=== PATIENT | female | born 1960 | race Caucasian/White ===

== ENCOUNTER 2025-04-09 08:25 | Emergency (ER) | payer MEDICARE, SELFPAY ==
--- NOTE | ~2025-04-09 | XR_ITS ---
EXAMINATION: XR chest 2V DATE: 04/09/2025 09:34 INDICATION: 3 days of cough and rhonchi TECHNIQUE: PA and lateral views of the chest were obtained. COMPARISON: None FINDINGS: Linear discoid atelectasis at the anterior bilateral lower lung zones. Subtle hazy opacity projecting over the right lower lung zone on the frontal projection may be related to some of the discoid atele ctasis seen en face or pneumonia. No pulmonary edema, pleural effusion or pneumothorax. The cardiomed iastinal silhouette is normal. Visualized bones and soft tissues are unremarkable. IMPRESSION: 1. Opacities in bilateral lower lung zones due at least primarily to discoid atelectasis although cou ld not exclude pneumonia in the right lower lung zone. Reviewed, dictated and finalized at location A. IMPRESSION: 1. Opacities in bilateral lower lung zones due at least primarily to discoid at electasis although could not exclude pneumonia in the right lower lung zone.
--- OUTSIDE RECORDS SUMMARY | 2025-04-09 08:33 | XMS_ITS | Encounter Summary ---
Author Organization [facility] Address [address] [place] [address] Care Team Providers Care Dopeman Name Role Phone Los Mccloud MD Primary Care Provider Encounter Details Date Type Department Care Team (Latest Contact Info) Description 06/03/2000 Outpatient Historical [facility] ROSALIO Baez, Antony Salinas MD NO ADDRESS ON FILE Other screening mammogram (Primary Dx) Social History Tobacco Use Types Packs/Day Years Used Date Smoking Tobacco: Never Assessed Comments Unknown Sex and Gender Information Value Date Recorded Sex Assigned at Not on file Legal Sex Female 3:44 AM SCORER SINGLE Gender Identity Not on file Sexual Orientation Not on file documented as of this encounter Plan of Treatment Upcoming Encounters Date Type Department Care Team (Late st Contact Info) Description 04/15/2025 8:30 AM CDT Office Visit [facility] Primary Care - [place] [address] [place] [address] Los Mccloud MD [facility] [address] [place] [address] documented as of this encounter Visit Diagnoses Diagnosis Other screening mammogram- Primary documented in this encounter Additional Health Concerns Infection Onset Date Last Indicated Resolved Time R/O COVID-19 12/13/2020 12/13/2020 12/15/2020 12:4 5 AM SCORER SINGLE COVID-19 12/13/2020 12/13/2020 01/12/2021 1:16 AM SCORER SINGLE documented as of this encounter Care Teams Dopeman Relationship Specialty Start Date End Date Los Mccloud MD [facility] [address] [place] [address] PCP - General Internal Medicine 06/23/23 documented as of this encounter
--- OUTSIDE RECORDS SUMMARY | 2025-04-09 08:33 | XMS_ITS ---
Author Organization [employer] [facility] Address [address] [facility] [address] [place] [address] Care Team Providers Care Tree Specialist Name Role Phone Los Mccloud Primary Care Provider Unava ilNorberto Borrego Unavailable [phone] REASON FOR VISIT RUQP, Acid reflx 5ft2 173 Encounters Encounter Location Date Provider Diagnosis [facility] [address] [place] [address] 09/22/2024 Norberto Gomez Plan Of Treatment No Information Progress Notes * ELIZABETMckenzie ADOB:1960 (64 yo F)Acc No.[id number]:09/22/2024 Patient: Mckenzie EL Provider: Bhavin Gomez M.D. :1960 A ge:63 Y S ex:Female Date:09/22/2024 Address:[address] [place] [address] [address] [facility] Pcp:Los Mccloud Subjective: * Chief Complaints: * 1 . RUQP, Acid reflx 5ft2 173. * Medical History: Objective: * Vitals: Assessment: Plan: * Treatment: * Images: * Electronic signature of Erlinda Gomez MD on 04/09/2025 at 08:33 AM CDT Sign off status: Pending * Provider: Bhavin Gomez M.D. Date: Generated for Printi ng/Farica/eTransmitting on: 0 04/09/2025 08:33 AM CDT
--- OUTSIDE RECORDS SUMMARY | 2025-04-09 08:33 | XMS_ITS | Encounter Summary ---
Author Organization [facility] Address [address] [place] [address] Care Team Providers Care Financial Aids Officer Name Role Phone Los Mccloud MD Primary Care Provider Encounter Details Date Type Department Care Team (Late Contact Info) Description 01/27/2009 Outpatient Historical [facility], [address] Aileen Tafoya MD [address] [place] [address] [place] [address] Social History Tobacco Use Types Packs/Day Years Used Date Smoking Tobacco: Never Alcohol Use Standard Drinks/Week Comments No 0 (1 standard drink = 0.6 oz pur e alcohol) Comments No Sex and Gender Information Value Date Recorded Sex Assigned at Not on file Legal Sex Female 3:44 AM TOMBSTONE ERECTOR HELPER Gender Identity Not on file Sexual Orientation Not on file documented as of this encounter Plan of Treatment Upcoming Encounters Date Type Department Care Team (Late Contact Info) Description 04/15/2025 8:30 AM CDT Office Visit [facility] Primary Care - [address] [place] [address] Los Mccloud MD [address] [place] [address]. [address] [place] [address] documented as of this encounter Procedures Procedure Name Priority Date/Time Associated Diagnosis Comments PATHOLOGY Routine 01/27/2009 5:00 PM TOMBSTONE ERECTOR HELPER documented in this encounter Results * PATHOLOGY (01/27/2009 5:00 PM TOMBSTONE ERECTOR HELPER) FINAL REPORT [facility] [address] [place], [place] [address] Patient: MCKENZIE MCNEAL : 1960 Procedure Date: 01/27/2009 Accession Date: 01/28/2009 Case No: [id number] Ordering Dr: AILEEN TAFOYA Case types AW, BW, FW, NW and SH are performed by [facility], [place], [place] SURGICAL PATHOLOGY & NON-GYNECOLOGIC CYTOPATHOLOGY REPORT DIAGNOSIS LARGE INTESTINE, RIGHT, ENDOSCOPIC BIOPSY: - TUBULAR ADENOMA. LARGE INTESTINE, SIGMOID AT 20 CM, ENDOSCOPIC BIOPSY: - TUBULAR ADENOMA, FRAGMENTS OF. Specimen Description: (1) Right colon; (2) sigmoid-20. Operative Procedure: Colonoscopy and EGD. Patient Information/Histo ry/Diagnosis: Family history of colon cancer. Personal history of polyps. (1) and (2) Colon polyp(s). Adenomatous vs. hyperplastic vs. other. Gross: Two containers are received labeled Mckenzie Mcneal. The first specimen is received in a container labeled right colon. It consists of a single piece of serrano tissue measuring less than 0.1 cm in greatest dimension. The specimen is submitted entirely labeled A1. The second specimen is received in a container labeled sigmoid-20. It consists of three pieces of serrano tissue ranging from less than 0.1 to 0.2 cm in greatest dimension. The specimen is submitted entirely labeled B1. ELHAM/CELINE 01.28.2009 09:51 am Microscopic: Received are slides labeled [id number], Mckenzie Mcneal. Sections of right identify crowded glands surfaced by adenomatous epithelium. Sections of sigmoid at 20 cm also identify crowded glands surfaced by adenomatous epithelium. Adenomatous change is present in more than one biopsy piece. PJC/TMZ 01.29.2009 09:36 am Staging Form: No. ELECTRONIC SIGNATURE FOR JANAE MATOS M.D.- 01/29/09 10:31 am INTERFACE SYSTEM 01/27/2009 5:00 PM TOMBSTONE ERECTOR HELPER Aileen Tafoya MD PATHOLOGY/CYTOLOGY ORDERABLES Final Result INTERFACE SYSTEM Refer to clinic/hospital department documented in this encounter Visit Diagnoses Not on filedocumented in this encounter Additional Health Concerns Infection Onset Date Last Indicated Resolved Time R/O COVID-12/13/2020 12/13/2020 12/15/2020 12:4 5 AM TOMBSTONE ERECTOR HELPER COVID-12/13/2020 12/13/2020 01/12/2021 1:16 AM TOMBSTONE ERECTOR HELPER documented as of this encounter Care Teams Financial Aids Officer Relationship Specialty Start Date End Date Los Mccloud MD [address] [facility] [place] [address] PCP - General Internal Medicine 06/23/23 documented as of this encounter
--- OUTSIDE RECORDS SUMMARY | 2025-04-09 08:34 | XMS_ITS | Encounter Summary ---
Author Organization [facility] Address [address] [place] [address] Care Team Providers Care System Engineer Name Role Phone Los Mccloud MD Primary Care Provider Encounter Details Date Type Department Care Team (Late st Contact Info) Description 07/06/2002 Outpatient Historical [facility] [address] [place] [address] [address] [place] [address] Pillo Lugo MD [address] [facility] [address] [id number] Social History Tobacco Use Types Packs/Day Years Used Date Smoking Tobacco: Never Assessed Comments Unknown Sex and Gender Information Value Date Recorded Sex Assigned at Not on file Legal Sex Female 3:44 AM FIELD ENUMERATOR Gender Identity Not on file Sexual Orientation Not on file documented as of this encounter Plan of Treatment Upcoming Encounters Date Type Department Care Team (Late st Contact Info) Description 04/15/2025 8:30 AM CDT Office Visit [facility] [address] [facility] [address] [place] [address] Los Mccloud MD [address] [place] [address]. [address] [place] [address] documented as of this encounter Visit Diagnoses Not on filedocumented in this encounter Additional Health Concerns Infection Onset Date Last Indicated Resolved Time R/O COVID-19 12/13/2020 12/13/2020 12/15/2020 12:4 5 AM FIELD ENUMERATOR COVID-19 12/13/2020 12/13/202001/12/2021 1:16 AM FIELD ENUMERATOR documented as of this encounter Care Teams System Engineer Relationship Specialty Start Date End Date Los Mccloud MD [address] [place] [address] PCP - General Internal Medicine 06/23/23 documented as of this encounter
--- OUTSIDE RECORDS SUMMARY | 2025-04-09 08:34 | XMS_ITS | Encounter Summary ---
Author Organization [facility] Address [address] [place] [address] Care Team Providers Care Test Technician Name Role Phone Los Mccloud MD Primary Care Provider Encounter Details Date Type Department Care Team (Latest Contact Info) Description 05/11/2002 Outpatient Historical [facility] Antony Tucker MD NO ADDRESS ON FILE SCREENING MAMM-MAILG NEOPL-OTHER (Primary Dx) Social History Tobacco Use Types Packs/Day Years Used Date Smoking Tobacco: Never Assessed Comments Unknown Sex and Gender Information Value Date Recorded Sex Assigned at Not on file Legal Sex Female 3:44 AM KITCHEN STEWARDESS Gender Identity Not on file Sexual Orientation Not on file documented as of this encounter Plan of Treatment Upcoming Encounters Date Type Department Care Team (Late st Contact Info) Description 04/15/2025 8:30 AM CDT Office Visit [facility] Primary Care - [address] [place] [address] Los Mccloud MD [facility] [address] [place] [address] documented as of this encounter Visit Diagnoses Diagnosis Other screening mammogram- Primary documented in this encounter Additional Health Concerns Infection Onset Date Last Indicated Resolved Time R/O COVID-19 12/13/2020 12/13/2020 12/15/2020 12:4 5 AM KITCHEN STEWARDESS COVID-19 12/13/2020 12/13/2020 01/12/2021 1:16 AM KITCHEN STEWARDESS documented as of this encounter Care Teams Test Technician Relationship Specialty Start Date End Date Los Mccloud MD [address] [place] [address] PCP - General Internal Medicine 06/23/23 documented as of this encounter
--- OUTSIDE RECORDS SUMMARY | 2025-04-09 08:34 | XMS_ITS | Encounter Summary ---
Author Organization [facility] Address [address] [place] [address] Care Team Providers Care Group Program Manager Name Role Phone Los Mccloud MD Primary Care Provider Encounter Details Date Type Department Care Team (Latest Contact Info) Description 05/12/2001 Outpatient Historical [facility] Antony Tucker MD NO ADDRESS ON FILE Leiomyoma of uterus, unspecified (Primary Dx) Social History Tobacco Use Types Packs/Day Years Used Date Smoking Tobacco: Never Assessed Comments Unknown Sex and Gender Information Value Date Recorded Sex Assigned at Not on file Legal Sex Female 3:44 AM SUPERVISOR CELLARS Gender Identity Not on file Sexual Orientation Not on file documented as of this encounter Plan of Treatment Upcoming Encounters Date Type Department Care Team (Late st Contact Info) Description 04/15/2025 8:30 AM CDT Office Visit [facility] Primary Care - [address] [place] [address] Los Mccloud MD [facility] [address] [place] [address] documented as of this encounter Visit Diagnoses Diagnosis Leiomyoma of uterus, unspecified- Primary documented in this encounter Additional Health Concerns Infection Onset Date Last Indicated Resolved Time R/O COVID-19 12/13/2020 12/13/2020 12/15/2020 12:4 5 AM SUPERVISOR CELLARS COVID-19 12/13/2020 12/13/2020 01/12/2021 1:16 AM SUPERVISOR CELLARS documented as of this encounter Care Teams Group Program Manager Relationship Specialty Start Date End Date Los Mccloud MD [address] [facility] [place] [address] PCP - General Internal Medicine 06/23/23 documented as of this encounter
--- OUTSIDE RECORDS SUMMARY | 2025-04-09 08:34 | XMS_ITS ---
Author Organization [facility] Address [address] [place] [address] [address] [place] [address] Care Team Providers Care Staffing Clerk Name Role Phone RogersShaylaLos Primary Care Provider Norberto Antunez Unavailable [phone] Encounters Encounter Location Date Provider Diagnosis [facility] [place], [address] [place] [address] 08/10/2024 Norberto Goodwinorr Plan Of Treatment No Information Progress Notes * Mckenzie MCNEAL ADOB:1960 (63 yo F)Acc No.[id number]:08/10/2024 Patient: Mckenzie Gage :1960 A ge:63 Y S ex:Female Address:[address] [place] [address] [address], [place] [address] Subjective: * Chief Complaints: * * Medical History: * Surgical History: * Hospitalization/Major Diagno stic Procedure: * Medications: Objective: * Examination: C QM Exceptions: Influenza Vaccine not administered: R terrence: M edical ReasonType of Medical Reason: N ot indicated. T D or Tdap vaccine not administered R terrence: M edical reason. Z tato vaccine not administered R terrence: M edical reason. Assessment: Plan: * Treatment: * Procedure Codes: * true * Date: Generated for Printi ng/Faxing/eTransmitting on: 0 04/09/2025 08:33 AM CDT History and Physical Notes * Examination Category Sub-Category Detail Notes Category Not es CQM Exceptions Influenza Vaccine no t administered: Reason:: Medical Reason Type of Medical Reason:: Not indicated TD or Tdap vaccine not administered Reason:: Med ical reason Zoster vaccine not administered Reason:: Medical reason
--- OUTSIDE RECORDS SUMMARY | 2025-04-09 08:34 | XMS_ITS | Encounter Summary ---
Author Organization [facility] Address [address] [place] [address] Care Team Providers Care Nub Card Tender Name Role Phone Los Mccloud MD Primary Care Provider Encounter Details Date Type Department Care Team (Late st Contact Info) Description 01/26/2004 Outpatient Historical [facility] [address] [place] [address] [address] [place] [address] Pillo Lugo MD [address] [facility] [address] [phone] Social History Tobacco Use Types Packs/Day Years Used Date Smoking Tobacco: Never Assessed Comments Unknown Sex and Gender Information Value Date Recorded Sex Assigned at Not on file Legal Sex Female 3:44 AM CHEMICAL SALES REPRESENTATIVE Gender Identity Not on file Sexual Orientation Not on file documented as of this encounter Plan of Treatment Upcoming Encounters Date Type Department Care Team (Late st Contact Info) Description 04/15/2025 8:30 AM CDT Office Visit [facility] [address] [facility] [address] [place] [address] Los Mccloud MD [address] [place] [address]. [address] [place] [address] documented as of this encounter Visit Diagnoses Not on filedocumented in this encounter Additional Health Concerns Infection Onset Date Last Indicated Resolved Time R/O COVID-19 12/13/2020 12/13/2020 12/15/2020 12:4 5 AM CHEMICAL SALES REPRESENTATIVE COVID-19 12/13/2020 12/13/202001/12/2021 1:16 AM CHEMICAL SALES REPRESENTATIVE documented as of this encounter Care Teams Nub Card Tender Relationship Specialty Start Date End Date Los Mccloud MD [address] [place] [address] PCP - General Internal Medicine 06/23/23 documented as of this encounter
--- OUTSIDE RECORDS SUMMARY | 2025-04-09 08:34 | XMS_ITS | Encounter Summary ---
Author Organization [facility] Address [address] [place] [address] Care Team Providers Care Office Support Name Role Phone Los Mccloud MD Primary Care Provider Encounter Details Date Type Department Care Team (Latest Contact Info) Description 01/22/2006 Outpatient Historical [place] [address] [facility] [address] [place] [address] SCREENING MAMM-MAILG NEOPL NEC (Primary Dx) Social History Tobacco Use Types Packs/Day Years Used Date Smoking Tobacco: Never Assessed Comments Unknown Sex and Gender Information Value Date Recorded Sex Assigned at Not on file Legal Sex Female 3:44 AM DATA ENTRY EMAIL PROCESSOR Gender Identity Not on file Sexual Orientation Not on file documented as of this encounter Plan of Treatment Upcoming Encounters Date Type Department Care Team (Late st Contact Info) Description 04/15/2025 8:30 AM CDT Office Visit [facility] Primary Care - [facility] [address] [place] [address] [address] [place] [address] Los Mccloud MD [address] [place] [address]. [address] [place] [address] documented as of this encounter Visit Diagnoses Diagnosis Other screening mammogram- Primary documented in this encounter Additional Health Concerns Infection Onset Date Last Indicated Resolved Time R/O COVID-19 12/13/2020 12/13/2020 12/15/2020 12:4 5 AM DATA ENTRY EMAIL PROCESSOR COVID-19 12/13/2020 12/13/2020 01/12/2021 1:16 AM DATA ENTRY EMAIL PROCESSOR documented as of this encounter Care Teams Office Support Relationship Specialty Start Date End Date Los Mccloud MD [facility] [address] [place] [address] PCP - General Internal Medicine 06/23/23 documented as of this encounter
--- OUTSIDE RECORDS SUMMARY | 2025-04-09 08:34 | XMS_ITS | Encounter Summary ---
Author Organization [facility] Address [address] [place] [address] Care Team Providers Care Drug And Alcohol Treatment Specialist Name Role Phone Los Mccloud MD Primary Care Provider Encounter Details Date Type Department Care Team (Latest Contact Info) Description 12/08/2004 Outpatient Historical [facility] Pillo Lugo MD [address] [facility] [address] [address] COUGH (Primary Dx) Social History Tobacco Use Types Packs/Day Years Used Date Smoking Tobacco: Never Assessed Comments Unknown Sex and Gender Information Value Date Recorded Sex Assigned at Not on file Legal Sex Female 3:44 AM MACHINE CAPTAIN Gender Identity Not on file Sexual Orientation Not on file documented as of this encounter Plan of Treatment Upcoming Encounters Date Type Department Care Team (Late st Contact Info) Description 04/15/2025 8:30 AM CDT Office Visit [facility] Primary Care - [facility] [address] [place] [address] [address] [place] [address] Los Mccloud MD [address] [place] [address]. [address] [place] [address] documented as of this encounter Visit Diagnoses Diagnosis Cough- Primary documented in this encounter Additional Health Concerns Infection Onset Date Last Indicated Resolved Time R/O COVID-19 12/13/2020 12/13/2020 12/15/2020 12:4 5 AM MACHINE CAPTAIN COVID-19 12/13/2020 12/13/2020 01/12/2021 1:16 AM MACHINE CAPTAIN documented as of this encounter Care Teams Drug And Alcohol Treatment Specialist Relationship Specialty Start Date End Date Los Mccloud MD [address] [place] [address]. [address] [place] [address] PCP - General Internal Medicine 06/23/23 documented as of this encounter
--- OUTSIDE RECORDS SUMMARY | 2025-04-09 08:34 | XMS_ITS | Encounter Summary ---
Author Organization [facility] Address [address] [place] [address] Care Team Providers Care Court Usher Name Role Phone Los Mccloud MD Primary Care Provider Encounter Details Date Type Department Care Team (Latest Contact Info) Description 01/28/2007 Outpatient Historical [place] [address] [facility] [address] [place] [address] Other Screening Mammogram (Primary Dx) Social History Tobacco Use Types Packs/Day Years Used Date Smoking Tobacco: Never Assessed Comments Unknown Sex and Gender Information Value Date Recorded Sex Assigned at Not on file Legal Sex Female 3:44 AM COPPER MINER BLASTING Gender Identity Not on file Sexual Orientation Not on file documented as of this encounter Plan of Treatment Upcoming Encounters Date Type Department Care Team (Late st Contact Info) Description 04/15/2025 8:30 AM CDT Office Visit [facility] Primary Care - [facility] [address] [place] [address] [address] [place] [address] Los Mccloud MD [address] [facility]. [address] [place] [address] documented as of this encounter Visit Diagnoses Diagnosis Other screening mammogram- Primary documented in this encounter Additional Health Concerns Infection Onset Date Last Indicated Resolved Time R/O COVID-19 12/13/2020 12/13/2020 12/15/2020 12:4 5 AM COPPER MINER BLASTING COVID-19 12/13/2020 12/13/2020 01/12/2021 1:16 AM COPPER MINER BLASTING documented as of this encounter Care Teams Court Usher Relationship Specialty Start Date End Date Los Mccloud MD [address] [place] [address]. [address] [place] [address] PCP - General Internal Medicine 06/23/23 documented as of this encounter
--- OUTSIDE RECORDS SUMMARY | 2025-04-09 08:34 | XMS_ITS | Encounter Summary ---
Author Organization [facility] Address [address] [place] [address] Care Team Providers Care Jewel Corner Brushing Machine Operator Name Role Phone Los Mccloud MD Primary Care Provider Encounter Details Date Type Department Care Team (Late st Contact Info) Description 07/19/2006 Orders Only [facility] Primary [facility] - [facility] [address] [facility] [address] [place] [address] Pillo Lugo MD [address] [facility] [address] [address] Social History Tobacco Use Types Packs/Day Years Used Date Smoking Tobacco: Never Assessed Comments Unknown Sex and Gender Information Value Date Recorded Sex Assigned at Not on file Legal Sex Female 3:44 AM TECHNICAL PHOTOGRAPHER Gender Identity Not on file Sexual Orientation Not on file documented as of this encounter Progress Notes * Pillo Lugo MD - 09/02/2008 11:39 PM CDT TIME:03:15 pm PATIENT`S HOME PHONE: PATIENT`S WORK PHONE: PATIENT`S INSURANCE: [facility] WHO TOOK THE CALL: Tai Levi W GENERAL INFORMATION PATIENT STATUS: Established Patient. LAST VISIT: 07-05-05 PCP: Brittney. ALTERNATIVE PHONE NUMBER: [phone] WHO CALLED: Patient called. CURRENT ALLERGY LIST: [facility] NUMBER: [phone] PROBLEMS: chest wall pain see 07-18-06 note taking naprosyn hurts to breath, offered and refused appt for 07-22-06. SECTION 1: REQUESTED ACTION frankw 07/19/06 at 03:18 pm: MEDICATION REQUEST: Jody, please call........tai RN/MANUELA RESPONSE: krista 07/19/06 at 03:32 pm spoke w.pt *naprosyn not helping--hurts to sit up or walk *pinching in rt chest area *wants something stronger--or suggestions of what to do to make it better *advil not working-heat not working--pain makes her occ sob-makes her gasp -pls advise-jody DOCTOR`S RESPONSE: mary 07/19/06 at 03:53 pm needs appt. possible xrays. go to ER or urgent care if worse this weekend. FINAL ACTION: krista 07/19/06 at 04:15 pm Spoke with patient 07/19/06 at 04:15 pm. SECTION 2: REQUESTED ACTION: krista 07/19/06 at 04:15 pm per BB MEDICATION REQUEST: MEDICATIONS: DARVOCET-N 100 ORAL TABLET 100-650 MG, 1 po q6hr prn pain, 12 Dispensed, status: NEW PRESCRIPTION, 07/19/2006. RN/MANUELA RESPONSE: krista 07/19/06 at 04:15 pm FINAL ACTION: krista 07/19/06 at 04:17 pm Spoke with patient 07/19/06 at 04:17 pm. instructed on above-jody Called pharmacy at 07/19/06 at 04:18 pm. rahat sawyer Electronically Signed by: Jody Reyes LPN on Wednesday, July 19, 2006 documented in this encounter Plan of Treatment Upcoming Encounters Date Type Department Care Team (Late st Contact Info) Description 04/15/2025 8:30 AM CDT Office Visit [facility] Primary [facility] - [facility] [address] [place] [address] Los Mccloud MD [address] [place] [address] documented as of this encounter Visit Diagnoses Not on filedocumented in this encounter Additional Health Concerns Infection Onset Date Last Indicated Resolved Time R/O COVID-19 12/13/2020 12/13/2020 12/15/2020 12:4 5 AM TECHNICAL PHOTOGRAPHER COVID-19 12/13/2020 12/13/2020 01/12/2021 1:16 AM TECHNICAL PHOTOGRAPHER documented as of this encounter Care Teams Jewel Corner Brushing Machine Operator Relationship Specialty Start Date End Date Los Mccloud MD [address] [place] [address] PCP - General Internal Medicine 06/23/23 documented as of this encounter
--- OUTSIDE RECORDS SUMMARY | 2025-04-09 08:34 | XMS_ITS | Encounter Summary ---
Author Organization [facility] Address [address] [place] [address] Care Team Providers Care Vertical Boring Mill Operator Name Role Phone Los Mccloud MD Primary Care Provider Encounter Details Date Type Department Care Team (Late st Contact Info) Description 04/17/2005 Outpatient Historical [facility] [address] [place] [address] [address] [place] [address] Pillo Lugo MD [address] [facility] [address] [address] Social History Tobacco Use Types Packs/Day Years Used Date Smoking Tobacco: Never Assessed Comments Unknown Sex and Gender Information Value Date Recorded Sex Assigned at Not on file Legal Sex Female 3:44 AM BAG MACHINE HELPER Gender Identity Not on file Sexual Orientation Not on file documented as of this encounter Last Filed Vital Signs Vital Sign Reading Time Taken Comments Blood Pressure 130/84 04/17/2005 1:00 PM CDT Pulse - - Temperature 36.9 C (98.4 F) 04/17/2005 1:00 PM CDT Respiratory Rate - - Oxygen Saturation - - Inhaled Oxygen Concentration - - Weight 68 kg (150 lb) 04/17/2005 1:00 PM CDT Height - - Body Mass Index - - documented in this encounter Plan of Treatment Upcoming Encounters Date Type Department Care Team (Late st Contact Info) Description 04/15/2025 8:30 AM CDT Office Visit [facility] [address] [facility] [address] [place] [address] Los Mccloud MD [address] [place] [address]. [address] [place] [address] documented as of this encounter Visit Diagnoses Not on filedocumented in this encounter Additional Health Concerns Infection Onset Date Last Indicated Resolved Time R/O COVID-12/13/2020 12/13/2020 12/15/2020 12:4 5 AM BAG MACHINE HELPER COVID-12/13/2020 12/13/2020 01/12/2021 1:16 AM BAG MACHINE HELPER documented as of this encounter Care Teams Vertical Boring Mill Operator Relationship Specialty Start Date End Date Los Mccloud MD [address] [place] [address] PCP - General Internal Medicine 06/23/23 documented as of this encounter
--- OUTSIDE RECORDS SUMMARY | 2025-04-09 08:34 | XMS_ITS | Encounter Summary ---
Author Organization [facility] Address [address] [place] [address] Care Team Providers Care Waistline Joiner Overlock Name Role Phone Los Mccloud MD Primary Care Provider Encounter Details Date Type Department Care Team (Late st Contact Info) Description 01/19/2004 Outpatient Historical [facility] [address] [place] [address] [address] [place] [address] Pillo Lugo MD [address] [facility] [address] [phone] Social History Tobacco Use Types Packs/Day Years Used Date Smoking Tobacco: Never Assessed Comments Unknown Sex and Gender Information Value Date Recorded Sex Assigned at Not on file Legal Sex Female 3:44 AM MILITARY TECHNOLOGY SPECIALIST Gender Identity Not on file Sexual Orientation Not on file documented as of this encounter Plan of Treatment Upcoming Encounters Date Type Department Care Team (Late st Contact Info) Description 04/15/2025 8:30 AM CDT Office Visit [facility] [address] [facility] [address] [place] [address] Los Mccloud MD [address] [place] [address]. [address] [place] [address] documented as of this encounter Visit Diagnoses Not on filedocumented in this encounter Additional Health Concerns Infection Onset Date Last Indicated Resolved Time R/O COVID-19 12/13/2020 12/13/2020 12/15/2020 12:4 5 AM MILITARY TECHNOLOGY SPECIALIST COVID-19 12/13/2020 12/13/202001/12/2021 1:16 AM MILITARY TECHNOLOGY SPECIALIST documented as of this encounter Care Teams Waistline Joiner Overlock Relationship Specialty Start Date End Date Los Mccloud MD [address] [place] [address] PCP - General Internal Medicine 06/23/23 documented as of this encounter
--- OUTSIDE RECORDS SUMMARY | 2025-04-09 08:34 | XMS_ITS | Encounter Summary ---
Author Organization [facility] Address [address] [place] [address] Care Team Providers Care Bark Peeler Name Role Phone Los Mccloud MD Primary Care Provider Encounter Details Date Type Department Care Team (Late st Contact Info) Description 03/23/2004 Outpatient Historical [facility] [address] [place] [address] [address] [place] [address] Pillo Lugo MD [address] [facility] [address] [phone] Social History Tobacco Use Types Packs/Day Years Used Date Smoking Tobacco: Never Assessed Comments Unknown Sex and Gender Information Value Date Recorded Sex Assigned at Not on file Legal Sex Female 3:44 AM SAMPLE BUILDER Gender Identity Not on file Sexual Orientation Not on file documented as of this encounter Plan of Treatment Upcoming Encounters Date Type Department Care Team (Late st Contact Info) Description 04/15/2025 8:30 AM CDT Office Visit [facility] [address] [facility] [address] [place] [address] Los Mccloud MD [address] [place] [address]. [address] [place] [address] documented as of this encounter Visit Diagnoses Not on filedocumented in this encounter Additional Health Concerns Infection Onset Date Last Indicated Resolved Time R/O COVID-19 12/13/2020 12/13/2020 12/15/2020 12:4 5 AM SAMPLE BUILDER COVID-19 12/13/2020 12/13/202001/12/2021 1:16 AM SAMPLE BUILDER documented as of this encounter Care Teams Bark Peeler Relationship Specialty Start Date End Date Los Mccloud MD [address] [place] [address] PCP - General Internal Medicine 06/23/23 documented as of this encounter
--- OUTSIDE RECORDS SUMMARY | 2025-04-09 08:34 | XMS_ITS | Encounter Summary ---
Author Organization [facility] Address [address] [place] [address] Care Team Providers Care Security Operations Specialist Name Role Phone Los Mccloud MD Primary Care Provider Encounter Details Date Type Department Care Team (Late st Contact Info) Description 07/22/2006 Outpatient Historical [facility] - [address] [place] [address] Pillo Lugo MD [address] [facility] [address] [address] Social History Tobacco Use Types Packs/Day Years Used Date Smoking Tobacco: Never Assessed Comments Unknown Sex and Gender Information Value Date Recorded Sex Assigned at Not on file Legal Sex Female 3:44 AM FINANCIAL ADVISOR Gender Identity Not on file Sexual Orientation Not on file documented as of this encounter Last Filed Vital Signs Vital Sign Reading Time Taken Comments Blood Pressure 150/90 07/22/2006 10:30 AM CDT Pulse - - Temperature 37.4 C (99.3 F) 07/22/2006 10:30 AM CDT Respiratory Rate - - Oxygen Saturation - - Inhaled Oxygen Concentration - - Weight 64.9 kg (143 lb) 07/22/2006 10:30 AM CDT Height - - Body Mass Index - - documented in this encounter Plan of Treatment Upcoming Encounters Date Type Department Care Team (Late st Contact Info) Description 04/15/2025 8:30 AM CDT Office Visit [facility] [address] [place] [address] [address] [place] [address] Los Mccloud MD [address] [place] [address]. [address] [place] [address] documented as of this encounter Visit Diagnoses Not on filedocumented in this encounter Additional Health Concerns Infection Onset Date Last Indicated Resolved Time R/O COVID-12/13/2020 12/13/2020 12/15/2020 12:4 5 AM FINANCIAL ADVISOR COVID-12/13/2020 12/13/2020 01/12/2021 1:16 AM FINANCIAL ADVISOR documented as of this encounter Care Teams Security Operations Specialist Relationship Specialty Start Date End Date Los Mccloud MD [address] [facility] [place] [address] PCP - General Internal Medicine 06/23/23 documented as of this encounter
--- OUTSIDE RECORDS SUMMARY | 2025-04-09 08:34 | XMS_ITS | Encounter Summary ---
Author Organization [facility] Address [address] [place] [address] Care Team Providers Care Collar Pointer Name Role Phone Los Mccloud MD Primary Care Provider Encounter Details Date Type Department Care Team (Late st Contact Info) Description 08/11/2001 Outpatient Historical [facility] [address] [place] [address] [address] [place] [address] Pillo Lugo MD [address] [facility] [address] [address] Social History Tobacco Use Types Packs/Day Years Used Date Smoking Tobacco: Never Assessed Comments Unknown Sex and Gender Information Value Date Recorded Sex Assigned at Not on file Legal Sex Female 3:44 AM COMPLIANCE NURSE Gender Identity Not on file Sexual Orientation Not on file documented as of this encounter Plan of Treatment Upcoming Encounters Date Type Department Care Team (Late st Contact Info) Description 04/15/2025 8:30 AM CDT Office Visit [facility] [address] [facility] [address] [place] [address] Los Mccloud MD [address] [place] [address]. [address] [place] [address] documented as of this encounter Visit Diagnoses Not on filedocumented in this encounter Additional Health Concerns Infection Onset Date Last Indicated Resolved Time R/O COVID-19 12/13/2020 12/13/2020 12/15/2020 12:4 5 AM COMPLIANCE NURSE COVID-19 12/13/2020 12/13/202001/12/2021 1:16 AM COMPLIANCE NURSE documented as of this encounter Care Teams Collar Pointer Relationship Specialty Start Date End Date Los Mccloud MD [address] [place] [address] PCP - General Internal Medicine 06/23/23 documented as of this encounter
--- OUTSIDE RECORDS SUMMARY | 2025-04-09 08:34 | XMS_ITS | Encounter Summary ---
Author Organization [facility] Address [address] [place] [address] Care Team Providers Care Genetics Nurse Name Role Phone Los Mccloud MD Primary Care Provider Encounter Details Date Type Department Care Team (Late st Contact Info) Description 11/04/2001 Outpatient Historical [facility] [address] [place] [address] [address] [place] [address] Pillo Lugo MD [address] [facility] [address] [address] Social History Tobacco Use Types Packs/Day Years Used Date Smoking Tobacco: Never Assessed Comments Unknown Sex and Gender Information Value Date Recorded Sex Assigned at Not on file Legal Sex Female 3:44 AM PAINTER HELPER SIGN Gender Identity Not on file Sexual Orientation Not on file documented as of this encounter Plan of Treatment Upcoming Encounters Date Type Department Care Team (Late st Contact Info) Description 04/15/2025 8:30 AM CDT Office Visit [facility] [address] [facility] [address] [place] [address] Los Mccloud MD [address] [place] [address]. [address] [place] [address] documented as of this encounter Visit Diagnoses Not on filedocumented in this encounter Additional Health Concerns Infection Onset Date Last Indicated Resolved Time R/O COVID-19 12/13/2020 12/13/2020 12/15/2020 12:4 5 AM PAINTER HELPER SIGN COVID-19 12/13/2020 12/13/202001/12/2021 1:16 AM PAINTER HELPER SIGN documented as of this encounter Care Teams Genetics Nurse Relationship Specialty Start Date End Date Los Mccloud MD [address] [place] [address] PCP - General Internal Medicine 06/23/23 documented as of this encounter
--- OUTSIDE RECORDS SUMMARY | 2025-04-09 08:34 | XMS_ITS | Encounter Summary ---
Author Organization [facility] Address [address] [place] [address] Care Team Providers Care Mainspring Fabrication Supervisor Name Role Phone Los Mccloud MD Primary Care Provider Encounter Details Date Type Department Care Team (Late st Contact Info) Description 07/05/2005 Outpatient Historical [facility] [address] [place] [address] [address] [place] [address] Pillo Lugo MD [address] [facility] [address] [address] Social History Tobacco Use Types Packs/Day Years Used Date Smoking Tobacco: Never Assessed Comments Unknown Sex and Gender Information Value Date Recorded Sex Assigned at Not on file Legal Sex Female 3:44 AM TEACHER ASSOCIATE Gender Identity Not on file Sexual Orientation Not on file documented as of this encounter Last Filed Vital Signs Vital Sign Reading Time Taken Comments Blood Pressure 130/80 07/05/2005 9:30 AM CDT Pulse - - Temperature 36.7 C (98 F) 07/05/2005 9:30 AM CDT Respiratory Rate - - Oxygen Saturation - - Inhaled Oxygen Concentration - - Weight 68 kg (150 lb) 07/05/2005 9:30 AM CDT Height - - Body Mass Index - - documented in this encounter Plan of Treatment Upcoming Encounters Date Type Department Care Team (Late st Contact Info) Description 04/15/2025 8:30 AM CDT Office Visit [facility] [address] [facility] [address] [place] [address] Los Mccloud MD [address] [place] [address]. [address] [place] [address] documented as of this encounter Visit Diagnoses Not on filedocumented in this encounter Additional Health Concerns Infection Onset Date Last Indicated Resolved Time R/O COVID-12/13/2020 12/13/2020 12/15/2020 12:4 5 AM TEACHER ASSOCIATE COVID-12/13/2020 12/13/2020 01/12/2021 1:16 AM TEACHER ASSOCIATE documented as of this encounter Care Teams Mainspring Fabrication Supervisor Relationship Specialty Start Date End Date Los Mccloud MD [address] [place] [address] PCP - General Internal Medicine 06/23/23 documented as of this encounter
--- OUTSIDE RECORDS SUMMARY | 2025-04-09 08:34 | XMS_ITS | Encounter Summary ---
Author Organization [facility] Address [address] [place] [address] Care Team Providers Care Wind Energy Systems Installer Name Role Phone Los Mccloud MD Primary Care Provider Encounter Details Date Type Department Care Team (Late st Contact Info) Description 01/23/2000 Outpatient Historical [facility] [address] [place] [address] [address] [place] [address] Pillo Lugo MD [address] [facility] [address] [address] Social History Tobacco Use Types Packs/Day Years Used Date Smoking Tobacco: Never Assessed Comments Unknown Sex and Gender Information Value Date Recorded Sex Assigned at Not on file Legal Sex Female 3:44 AM FOOT MITER OPERATOR Gender Identity Not on file Sexual Orientation Not on file documented as of this encounter Plan of Treatment Upcoming Encounters Date Type Department Care Team (Late st Contact Info) Description 04/15/2025 8:30 AM CDT Office Visit [facility] [address] [facility] [address] [place] [address] Los Mccloud MD [address] [place] [address]. [address] [place] [address] documented as of this encounter Visit Diagnoses Not on filedocumented in this encounter Additional Health Concerns Infection Onset Date Last Indicated Resolved Time R/O COVID-19 12/13/2020 12/13/2020 12/15/2020 12:4 5 AM FOOT MITER OPERATOR COVID-19 12/13/2020 12/13/202001/12/2021 1:16 AM FOOT MITER OPERATOR documented as of this encounter Care Teams Wind Energy Systems Installer Relationship Specialty Start Date End Date Los Mccloud MD [address] [place] [address] PCP - General Internal Medicine 06/23/23 documented as of this encounter
--- OUTSIDE RECORDS SUMMARY | 2025-04-09 08:34 | XMS_ITS | Encounter Summary ---
Author Organization [facility] Address [address] [place] [address] Care Team Providers Care Designer/Writer Name Role Phone Los Mccloud MD Primary Care Provider Encounter Details Date Type Department Care Team (Latest Contact Info) Description 01/18/2004 Outpatient Historical [place] [address] [facility] [address] [place] [address] SCREENING MAMM-MAILG NEOPL-OTHER (Primary Dx) Social History Tobacco Use Types Packs/Day Years Used Date Smoking Tobacco: Never Assessed Comments Unknown Sex and Gender Information Value Date Recorded Sex Assigned at Not on file Legal Sex Female 3:44 AM ELECTRICIAN CONSTRUCTOR SUPERVISOR Gender Identity Not on file Sexual Orientation Not on file documented as of this encounter Plan of Treatment Upcoming Encounters Date Type Department Care Team (Late st Contact Info) Description 04/15/2025 8:30 AM CDT Office Visit [facility] Primary Care - [facility] [address] [place] [address] [address] [place] [address] Los Mccloud MD [address] [place] [address]. [address] [place] [address] documented as of this encounter Visit Diagnoses Diagnosis Other screening mammogram- Primary documented in this encounter Additional Health Concerns Infection Onset Date Last Indicated Resolved Time R/O COVID-19 12/13/2020 12/13/2020 12/15/2020 12:4 5 AM ELECTRICIAN CONSTRUCTOR SUPERVISOR COVID-19 12/13/2020 12/13/2020 01/12/2021 1:16 AM ELECTRICIAN CONSTRUCTOR SUPERVISOR documented as of this encounter Care Teams Designer/Writer Relationship Specialty Start Date End Date Los Mccloud MD [address] [place] [address] PCP - General Internal Medicine 06/23/23 documented as of this encounter
--- OUTSIDE RECORDS SUMMARY | 2025-04-09 08:34 | XMS_ITS | Encounter Summary ---
Author Organization [facility] Address [address] [place] [address] Care Team Providers Care Ethnographic Materials Conservator Name Role Phone Los Mccloud MD Primary Care Provider Encounter Details Date Type Department Care Team (Late st Contact Info) Description 06/10/2001 Outpatient Historical [facility] [address] [place] [address] [address] [place] [address] Pillo Lugo MD [address] [facility] [address] [phone] Social History Tobacco Use Types Packs/Day Years Used Date Smoking Tobacco: Never Assessed Comments Unknown Sex and Gender Information Value Date Recorded Sex Assigned at Not on file Legal Sex Female 3:44 AM RN SHIFT MGR Gender Identity Not on file Sexual Orientation Not on file documented as of this encounter Plan of Treatment Upcoming Encounters Date Type Department Care Team (Late st Contact Info) Description 04/15/2025 8:30 AM CDT Office Visit [facility] [address] [facility] [address] [place] [address] Los Mccloud MD [address] [place] [address]. [address] [place] [address] documented as of this encounter Visit Diagnoses Not on filedocumented in this encounter Additional Health Concerns Infection Onset Date Last Indicated Resolved Time R/O COVID-19 12/13/2020 12/13/2020 12/15/2020 12:4 5 AM RN SHIFT MGR COVID-19 12/13/2020 12/13/202001/12/2021 1:16 AM RN SHIFT MGR documented as of this encounter Care Teams Ethnographic Materials Conservator Relationship Specialty Start Date End Date Los Mccloud MD [address] [place] [address] PCP - General Internal Medicine 06/23/23 documented as of this encounter
--- OUTSIDE RECORDS SUMMARY | 2025-04-09 08:34 | XMS_ITS | Encounter Summary ---
Author Organization [facility] Address [address] [place] [address] Care Team Providers Care Ethylene Plant Helper Name Role Phone Los Mccloud MD Primary Care Provider Encounter Details Date Type Department Care Team (Latest Contact Info) Description 01/02/2005 Outpatient Historical [place] [address] [facility] [address] [place] [address] SCREENING MAMM-MAILG NEOPL-OTHER (Primary Dx) Social History Tobacco Use Types Packs/Day Years Used Date Smoking Tobacco: Never Assessed Comments Unknown Sex and Gender Information Value Date Recorded Sex Assigned at Not on file Legal Sex Female 3:44 AM THERMAL TECHNICIAN Gender Identity Not on file Sexual Orientation Not on file documented as of this encounter Plan of Treatment Upcoming Encounters Date Type Department Care Team (Late st Contact Info) Description 04/15/2025 8:30 AM CDT Office Visit [facility] Primary Care - [facility] [address] [place] [address] [address] [place] [address] Los Mccloud MD [address] [place] [address]. [address] [place] [address] documented as of this encounter Visit Diagnoses Diagnosis Other screening mammogram- Primary documented in this encounter Additional Health Concerns Infection Onset Date Last Indicated Resolved Time R/O COVID-19 12/13/2020 12/13/2020 12/15/2020 12:4 5 AM THERMAL TECHNICIAN COVID-19 12/13/2020 12/13/2020 01/12/2021 1:16 AM THERMAL TECHNICIAN documented as of this encounter Care Teams Ethylene Plant Helper Relationship Specialty Start Date End Date Los Mccloud MD [address] [place] [address] PCP - General Internal Medicine 06/23/23 documented as of this encounter
--- OUTSIDE RECORDS SUMMARY | 2025-04-09 08:34 | XMS_ITS | Encounter Summary ---
Author Organization [facility] Address [address] [place] [address] Care Team Providers Care Development Trainer Name Role Phone Los Mccloud MD Primary Care Provider Encounter Details Date Type Department Care Team (Latest Contact Info) Description 02/05/2006 Outpatient Historical HIS [facility] [place] [address] [facility] [address] [place] [address] Diffuse Cystic Mastopathy (Primary Dx) Social History Tobacco Use Types Packs/Day Years Used Date Smoking Tobacco: Never Assessed Comments Unknown Sex and Gender Information Value Date Recorded Sex Assigned at Not on file Legal Sex Female 3:44 AM STAFF MIDWIFE Gender Identity Not on file Sexual Orientation Not on file documented as of this encounter Plan of Treatment Upcoming Encounters Date Type Department Care Team (Late st Contact Info) Description 04/15/2025 8:30 AM CDT Office Visit [facility] Primary Care - [facility] [address] [place] [address] [place] [address] Los Mccloud MD [address] [facility]. [address] [place] [address] documented as of this encounter Visit Diagnoses Diagnosis Diffuse cystic mastopathy- Primary documented in this encounter Additional Health Concerns Infection Onset Date Last Indicated Resolved Time R/O COVID-19 12/13/2020 12/13/2020 12/15/2020 12:4 5 AM STAFF MIDWIFE COVID-19 12/13/2020 12/13/2020 01/12/2021 1:16 AM STAFF MIDWIFE documented as of this encounter Care Teams Development Trainer Relationship Specialty Start Date End Date Los Mccloud MD [address] [facility]. [address] [place] [address] PCP - General Internal Medicine 06/23/23 documented as of this encounter
--- OUTSIDE RECORDS SUMMARY | 2025-04-09 08:34 | XMS_ITS | Encounter Summary ---
Author Organization [facility] Address [address] [place] [address] Care Team Providers Care Incident Response Engineer Name Role Phone Los Mccloud MD Primary Care Provider Encounter Details Date Type Department Care Team (Latest Contact Info) Description 05/12/2002 Outpatient Historical [facility] Antony Tucker MD NO ADDRESS ON FILE UTERINE LEIOMYOMA NOS (Primary Dx) Social History Tobacco Use Types Packs/Day Years Used Date Smoking Tobacco: Never Assessed Comments Unknown Sex and Gender Information Value Date Recorded Sex Assigned at Not on file Legal Sex Female 3:44 AM SPECIALIST ICU Gender Identity Not on file Sexual Orientation Not on file documented as of this encounter Plan of Treatment Upcoming Encounters Date Type Department Care Team (Late st Contact Info) Description 04/15/2025 8:30 AM CDT Office Visit [facility] Primary Care - [address] [place] [address] Los Mccloud MD [address] [place] [address]. [address] [place] [address] documented as of this encounter Visit Diagnoses Diagnosis Leiomyoma of uterus, unspecified- Primary documented in this encounter Additional Health Concerns Infection Onset Date Last Indicated Resolved Time R/O COVID-19 12/13/2020 12/13/2020 12/15/2020 12:4 5 AM SPECIALIST ICU COVID-19 12/13/2020 12/13/2020 01/12/2021 1:16 AM SPECIALIST ICU documented as of this encounter Care Teams Incident Response Engineer Relationship Specialty Start Date End Date Los Mccloud MD [address] [place] [address] PCP - General Internal Medicine 06/23/23 documented as of this encounter
--- OUTSIDE RECORDS SUMMARY | 2025-04-09 08:34 | XMS_ITS | Encounter Summary ---
Author Organization [facility] Address [address] [place] [address] Care Team Providers Care Body Make Up Artist Name Role Phone Los Mccloud MD Primary Care Provider Encounter Details Date Type Department Care Team (Late st Contact Info) Description 09/17/2000 Outpatient Historical [address] [place] [address] Babar Osullivan MD NO ADDRESS ON FILE Social History Tobacco Use Types Packs/Day Years Used Date Smoking Tobacco: Never Assessed Comments Unknown Sex and Gender Information Value Date Recorded Sex Assigned at Not on file Legal Sex Female 3:44 AM SOIL EXPERT Gender Identity Not on file Sexual Orientation Not on file documented as of this encounter Plan of Treatment Upcoming Encounters Date Type Department Care Team (Late st Contact Info) Description 04/15/2025 8:30 AM CDT Office Visit [address] [place] [address] Los Mccloud MD [address] [place] [address]. [address] [place] [address] documented as of this encounter Visit Diagnoses Not on filedocumented in this encounter Additional Health Concerns Infection Onset Date Last Indicated Resolved Time R/O COVID-12/13/2020 12/13/2020 12/15/2020 12:4 5 AM SOIL EXPERT COVID-19 12/13/2020 12/13/2020 01/12/2021 1:16 AM SOIL EXPERT documented as of this encounter Care Teams Body Make Up Artist Relationship Specialty Start Date End Date Los Mccloud MD [address] [place] [address] PCP - General Internal Medicine 06/23/23 documented as of this encounter
--- OUTSIDE RECORDS SUMMARY | 2025-04-09 08:34 | XMS_ITS | Encounter Summary ---
Author Organization [facility] Address [address] [place] [address] Care Team Providers Care Service Desk Team Lead Name Role Phone Los Mccloud MD Primary Care Provider Encounter Details Date Type Department Care Team (Late st Contact Info) Description 07/22/2006 Orders Only [facility] Primary Care - [facility] [address] [facility] [address] [place] [address] Pillo Lugo MD [address] [facility] [address] [address] Social History Tobacco Use Types Packs/Day Years Used Date Smoking Tobacco: Never Assessed Comments Unknown Sex and Gender Information Value Date Recorded Sex Assigned at Not on file Legal Sex Female 3:44 AM BOX FEEDER Gender Identity Not on file Sexual Orientation Not on file documented as of this encounter Progress Notes * Pillo Lugo MD - 09/02/2008 11:37 PM CDT TIME:08:36 am PATIENT`S HOME PHONE: PATIENT`S WORK PHONE: PATIENT`S INSURANCE: [facility] WHO TOOK THE CALL: Wagner Damon GENERAL INFORMATION PATIENT STATUS: Established Patient. LAST VISIT: 07-05-05 PCP: maryam. ALTERNATIVE PHONE NUMBER: [phone] WHO CALLED: Patient called. CURRENT ALLERGY LIST: NKDA PROBLEMS: PAIN: Patient complains of chest pain. she said that her right side is having muscle spasms and shewas given meds and they are not, pt said she called doctor exchange and Dr Jackson said she needed kahlil seen this morning per pt SECTION 1: REQUESTED ACTION longrr 07/22/06 at 08:38 am: APPOINTMENT REQUEST: Patient wants an appointment today with any provider, no appointments available. Wagner DOCTOR`S RESPONSE: mary 07/22/06 at 08:41 am 1030 FINAL ACTION: hollis 07/22/06 at 08:43 am Spoke with patient 07/22/06 at 08:43 am. Booked appointment: 07-22 10:30.........tai Electronically Signed by: Tai Levi on Saturday, July 22, 2006 * Pillo Lugo MD - 09/02/2008 11:34 PM CDT BLOOD PRESSURE: 150/90 Left Arm Sitting TEMPERATURE: 99.3Â°f Oral WEIGHT: 143lbs NURSE NAME: Dorie Frankel A ALLERGIES: No known drug allergies. MEDICATIONS: RN/MA reviewed medications. CHIEF COMPLAINT Patient complains of chest pain. since last ..pt pulled a muscle while reachingfor a towel... PHYSICAL EXAMINATION: RESPIRATORY: Clear to auscultation and percussion. Normal respiratory effort. CARDIOVASCULAR: CARDIAC: Regular rhythm. No murmurs, rubs, or gallops. ARTERIAL: Aortic pulses of normal amplitude with no bruits. EDEMA/VARICOSITIES OF EXTREMITIES: No edema or varicosities. MUSCULOSKELETAL EXAM: HEAD AND NECK: Normal to inspection and palpation with satisfactory range of motion. Strength adequate with normal stability. SPINE/RIBS/PELVIS: No kyphosis, lordosis, full range of motion. Normal stability, strength and tone. ASSESSMENT/PLAN: 848.3-OTHER AND ILL-DEFINED SPRAINS AND STRAINS ASSESSMENT: try meds, rest. check xray MEDICATIONS: FLEXERIL ORAL TABLET 10 MG, 1 Three Times A Day, As Needed, 15 Dispensed, status: NEW PRESCRIPTION,07/22/2006. DARVOCET-N 100 ORAL TABLET 100-650 MG, 1 po q6hr prn pain, 20 Dispensed, status: CONTINUED, 07/22/2006. LAB ORDERS: Order number: [id number] Test Ordered: XRAY RIB SERIES Order number: [id number] Test Ordered: CHEST XRAY RETURN VISIT : Patient instructed to call in 2 weeks if not improving. Electronically Signed by: Pillo Lugo MD on Saturday, July 29, 2006 * Pillo Lugo MD - 09/02/2008 11:28 PM CDT TIME:05:02 pm MISC PLAIN FILMS: CXR The CXR is normal. and rib series normal pt notified pr Electronically Signed by: Adelaida Oleary on Saturday, July 22, 2006 documented in this encounter Plan of Treatment Upcoming Encounters Date Type Department Care Team (Late st Contact Info) Description 04/15/2025 8:30 AM CDT Office Visit [facility] Care - [facility] [address] [place] [address] Los Mccloud MD [address] [place] [address] documented as of this encounter Visit Diagnoses Not on filedocumented in this encounter Additional Health Concerns Infection Onset Date Last Indicated Resolved Time R/O COVID-19 12/13/2020 12/13/2020 12/15/2020 12:4 5 AM BOX FEEDER COVID-19 12/13/2020 12/13/2020 01/12/2021 1:16 AM BOX FEEDER documented as of this encounter Care Teams Service Desk Team Lead Relationship Specialty Start Date End Date Los Mccloud MD [address] [place] [address] PCP - General Internal Medicine 06/23/23 documented as of this encounter
--- OUTSIDE RECORDS SUMMARY | 2025-04-09 08:34 | XMS_ITS | Encounter Summary ---
Author Organization [facility] Address [address] [place] [address] Care Team Providers Care Fish Butcher Name Role Phone Los Mccloud MD Primary Care Provider Encounter Details Date Type Department Care Team (Late st Contact Info) Description 01/08/2006 Outpatient Historical [facility] Uli Michael MD [address] [place] [address] DYSPHAGIA (Primary Dx) Social History Tobacco Use Types Packs/Day Years Used Date Smoking Tobacco: Never Assessed Comments Unknown Sex and Gender Information Value Date Recorded Sex Assigned at Not on file Legal Sex Female 3:44 AM CAKE FROSTER Gender Identity Not on file Sexual Orientation Not on file documented as of this encounter Plan of Treatment Upcoming Encounters Date Type Department Care Team (Late st Contact Info) Description 04/15/2025 8:30 AM CDT Office Visit [facility] Primary Care - [address] [place] [address] Los Mccloud MD [address] [place] [address]. [address] [place] [address] documented as of this encounter Visit Diagnoses Diagnosis Dysphagia- Primary documented in this encounter Additional Health Concerns Infection Onset Date Last Indicated Resolved Time R/O COVID-19 12/13/2020 12/13/2020 12/15/2020 12:4 5 AM CAKE FROSTER COVID-19 12/13/2020 12/13/2020 01/12/2021 1:16 AM CAKE FROSTER documented as of this encounter Care Teams Fish Butcher Relationship Specialty Start Date End Date Los Mccloud MD [address] [place] [address] PCP - General Internal Medicine 06/23/23 documented as of this encounter
--- OUTSIDE RECORDS SUMMARY | 2025-04-09 08:34 | XMS_ITS | Encounter Summary ---
Author Organization [facility] Address [address] [place] [address] Care Team Providers Care Production Department Supervisor Name Role Phone Los Mccloud MD Primary Care Provider Encounter Details Date Type Department Care Team (Late st Contact Info) Description 07/18/2006 Orders Only [facility] Primary Care - [facility] [address] [facility] [address] [place] [address] Pillo Lugo MD [address] [facility] [address] [address] Social History Tobacco Use Types Packs/Day Years Used Date Smoking Tobacco: Never Assessed Comments Unknown Sex and Gender Information Value Date Recorded Sex Assigned at Not on file Legal Sex Female 3:44 AM DIRECTOR OF STUDENT FINANCIAL AID Gender Identity Not on file Sexual Orientation Not on file documented as of this encounter Progress Notes * Pillo Lugo MD - 09/02/2008 11:03 PM CDT TIME:09:09 am PATIENT`S HOME PHONE: PATIENT`S WORK PHONE: PATIENT`S INSURANCE: [facility] WHO TOOK THE CALL: Tai Levi W GENERAL INFORMATION PATIENT STATUS: Established Patient. LAST VISIT: 07-05-05 PCP: Brittney. ALTERNATIVE PHONE NUMBER: [phone] WHO CALLED: Patient called. CURRENT ALLERGY LIST: NKDA PHARMACY NUMBER: [phone] PROBLEMS: reached the wrong way this am and injured rt chest. sore, took 2 advil. SECTION 1: REQUESTED ACTION hawkw 07/18/06 at 09:11 am: wants anti inflam rx..........tai DOCTOR`S RESPONSE: mary 07/18/06 at 09:16 am MEDICATIONS: Call in to Pharmacy NAPROSYN ORAL TABLET 500 MG, 1 Two Times A Day, 60 Dispensed, status: NEW PRESCRIPTION, 07/18/2006. FINAL ACTION: frankw 07/18/06 at 09:32 am Spoke with patient 07/18/06 at 09:32 am. Called pharmacy at 07/18/06 at 09:32 am. / tai Electronically Signed by: Tai Levi on June documented in this encounter Plan of Treatment Upcoming Encounters Date Type Department Care Team (Late st Contact Info) Description 04/15/2025 8:30 AM CDT Office Visit [facility] Care - [facility] [address] [place] [phone] Los Mccloud MD [address] [place] [address] documented as of this encounter Visit Diagnoses Not on filedocumented in this encounter Additional Health Concerns Infection Onset Date Last Indicated Resolved Time R/O COVID-19 12/13/2020 12/13/2020 12/15/2020 12:4 5 AM DIRECTOR OF STUDENT FINANCIAL AID COVID-19 12/13/2020 12/13/2020 01/12/2021 1:16 AM DIRECTOR OF STUDENT FINANCIAL AID documented as of this encounter Care Teams Production Department Supervisor Relationship Specialty Start Date End Date Los Mccloud MD [address] [place] [address] PCP - General Internal Medicine 06/23/23 documented as of this encounter
--- OUTSIDE RECORDS SUMMARY | 2025-04-09 08:34 | XMS_ITS | Encounter Summary ---
Author Organization [facility] Address [address] [place] [address] Care Team Providers Care Waiter/Waitress Tourist Class Name Role Phone Los Mccloud MD Primary Care Provider Encounter Details Date Type Department Care Team (Late st Contact Info) Description 10/11/2004 Outpatient Historical [facility] [address] [place] [address] [address] [place] [address] Pillo Lugo MD [address] [facility] [address] [phone] Social History Tobacco Use Types Packs/Day Years Used Date Smoking Tobacco: Never Assessed Comments Unknown Sex and Gender Information Value Date Recorded Sex Assigned at Not on file Legal Sex Female 3:44 AM CONFECTIONERY MAKER Gender Identity Not on file Sexual Orientation Not on file documented as of this encounter Plan of Treatment Upcoming Encounters Date Type Department Care Team (Late st Contact Info) Description 04/15/2025 8:30 AM CDT Office Visit [facility] [address] [facility] [address] [place] [address] Los Mccloud MD [address] [place] [address]. [address] [place] [address] documented as of this encounter Visit Diagnoses Not on filedocumented in this encounter Additional Health Concerns Infection Onset Date Last Indicated Resolved Time R/O COVID-19 12/13/2020 12/13/2020 12/15/2020 12:4 5 AM CONFECTIONERY MAKER COVID-19 12/13/2020 12/13/202001/12/2021 1:16 AM CONFECTIONERY MAKER documented as of this encounter Care Teams Waiter/Waitress Tourist Class Relationship Specialty Start Date End Date Los Mccloud MD [address] [place] [address] PCP - General Internal Medicine 06/23/23 documented as of this encounter
--- OUTSIDE RECORDS SUMMARY | 2025-04-09 08:34 | XMS_ITS | Encounter Summary ---
Author Organization [facility] Address [address] [place] [address] Care Team Providers Care Machine Sander Name Role Phone Los Mccloud MD Primary Care Provider Encounter Details Date Type Department Care Team (Latest Contact Info) Description 01/14/2003 Outpatient Historical [facility], Yun Sampson MD NO ADDRESS ON FILE LUMP OR MASS IN BREAST (Primary Dx) Social History Tobacco Use Types Packs/Day Years Used Date Smoking Tobacco: Never Assessed Comments Unknown Sex and Gender Information Value Date Recorded Sex Assigned at Not on file Legal Sex Female 3:44 AM STOCK ORDER LISTER Gender Identity Not on file Sexual Orientation Not on file documented as of this encounter Plan of Treatment Upcoming Encounters Date Type Department Care Team (Late st Contact Info) Description 04/15/2025 8:30 AM CDT Office Visit [facility] Primary Care - [address] [place] [address] Los Mccloud MD [facility] [address] [place] [address] documented as of this encounter Visit Diagnoses Diagnosis Lump or mass in breast- Primary documented in this encounter Additional Health Concerns Infection Onset Date Last Indicated Resolved Time R/O COVID-19 12/13/2020 12/13/2020 12/15/2020 12:4 5 AM STOCK ORDER LISTER COVID-19 12/13/2020 12/13/2020 01/12/2021 1:16 AM STOCK ORDER LISTER documented as of this encounter Care Teams Machine Sander Relationship Specialty Start Date End Date Los Mccloud MD [facility] [address] [place] [address] PCP - General Internal Medicine 06/23/23 documented as of this encounter
--- OUTSIDE RECORDS SUMMARY | 2025-04-09 08:34 | XMS_ITS | Encounter Summary ---
Author Organization [facility] Address [address] [place] [address] Care Team Providers Care Lease Buyer Name Role Phone Los Mccloud MD Primary Care Provider Encounter Details Date Type Department Care Team (Late st Contact Info) Description 09/05/2004 Outpatient Historical [facility] [address] [place] [address] [address] [place] [address] Fernandez Monge MD [address] [facility] [address] [place] [address] Social History Tobacco Use Types Packs/Day Years Used Date Smoking Tobacco: Never Assessed Comments Unknown Sex and Gender Information Value Date Recorded Sex Assigned at Not on file Legal Sex Female 3:44 AM STEREOTYPE MOLDER Gender Identity Not on file Sexual Orientation Not on file documented as of this encounter Plan of Treatment Upcoming Encounters Date Type Department Care Team (Late st Contact Info) Description 04/15/2025 8:30 AM CDT Office Visit [facility] [address] [place] [address] [address] [place] [address] Los Mccloud MD [address] [facility] [place] [address] documented as of this encounter Visit Diagnoses Not on filedocumented in this encounter Additional Health Concerns Infection Onset Date Last Indicated Resolved Time R/O COVID-19 12/13/2020 12/13/2020 12/15/2020 12:4 5 AM STEREOTYPE MOLDER COVID-19 12/13/2020 12/13/202001/12/2021 1:16 AM STEREOTYPE MOLDER documented as of this encounter Care Teams Lease Buyer Relationship Specialty Start Date End Date Los Mccloud MD [address] [place] [address] PCP - General Internal Medicine 06/23/23 documented as of this encounter
--- OUTSIDE RECORDS SUMMARY | 2025-04-09 08:34 | XMS_ITS | Encounter Summary ---
Author Organization [facility] Address [address] [place] [address] Care Team Providers Care Skein Tier Name Role Phone Los Mccloud MD Primary Care Provider Encounter Details Date Type Department Care Team (Late st Contact Info) Description 01/15/2000 Outpatient Historical [facility] [address] [place] [address] [address] [place] [address] Pillo Lugo MD [address] [facility] [address] [phone] Social History Tobacco Use Types Packs/Day Years Used Date Smoking Tobacco: Never Assessed Comments Unknown Sex and Gender Information Value Date Recorded Sex Assigned at Not on file Legal Sex Female 3:44 AM BANK ADVISOR Gender Identity Not on file Sexual Orientation Not on file documented as of this encounter Plan of Treatment Upcoming Encounters Date Type Department Care Team (Late st Contact Info) Description 04/15/2025 8:30 AM CDT Office Visit [facility] [address] [facility] [address] [place] [address] Los Mccloud MD [address] [place] [address]. [address] [place] [address] documented as of this encounter Visit Diagnoses Not on filedocumented in this encounter Additional Health Concerns Infection Onset Date Last Indicated Resolved Time R/O COVID-19 12/13/2020 12/13/2020 12/15/2020 12:4 5 AM BANK ADVISOR COVID-19 12/13/2020 12/13/202001/12/2021 1:16 AM BANK ADVISOR documented as of this encounter Care Teams Skein Tier Relationship Specialty Start Date End Date Los Mccloud MD [address] [place] [address] PCP - General Internal Medicine 06/23/23 documented as of this encounter
--- OUTSIDE RECORDS SUMMARY | 2025-04-09 08:34 | XMS_ITS | Encounter Summary ---
Author Organization [facility] Address [address] [place] [address] Care Team Providers Care Manager Of Employee Relations Name Role Phone Los Mccloud MD Primary Care Provider Encounter Details Date Type Department Care Team (Late st Contact Info) Description 10/12/2002 Outpatient Historical [facility] [address] [place] [address] [address] [place] [address] Pillo Lugo MD [address] [facility] [address] [phone] Social History Tobacco Use Types Packs/Day Years Used Date Smoking Tobacco: Never Assessed Comments Unknown Sex and Gender Information Value Date Recorded Sex Assigned at Not on file Legal Sex Female 3:44 AM RECEP Gender Identity Not on file Sexual Orientation Not on file documented as of this encounter Plan of Treatment Upcoming Encounters Date Type Department Care Team (Late st Contact Info) Description 04/15/2025 8:30 AM CDT Office Visit [facility] [address] [facility] [address] [place] [address] Los Mccloud MD [address] [place] [address]. [address] [place] [address] documented as of this encounter Visit Diagnoses Not on filedocumented in this encounter Additional Health Concerns Infection Onset Date Last Indicated Resolved Time R/O COVID-19 12/13/2020 12/13/2020 12/15/2020 12:4 5 AM RECEP COVID-19 12/13/2020 12/13/202001/12/2021 1:16 AM RECEP documented as of this encounter Care Teams Manager Of Employee Relations Relationship Specialty Start Date End Date Los Mccloud MD [address] [place] [address] PCP - General Internal Medicine 06/23/23 documented as of this encounter
--- OUTSIDE RECORDS SUMMARY | 2025-04-09 08:34 | XMS_ITS | Encounter Summary ---
Author Organization [facility] Address [address] [place] [address] Care Team Providers Care Fire Department Battalion Chief Name Role Phone Los Mccloud MD Primary Care Provider Encounter Details Date Type Department Care Team (Late st Contact Info) Description 08/18/2001 Outpatient Historical [facility] [address] [place] [address] [address] [place] [address] Pillo Lugo MD [address] [facility] [address] [phone] Social History Tobacco Use Types Packs/Day Years Used Date Smoking Tobacco: Never Assessed Comments Unknown Sex and Gender Information Value Date Recorded Sex Assigned at Not on file Legal Sex Female 3:44 AM MACHINE OPERATOR Gender Identity Not on file Sexual Orientation Not on file documented as of this encounter Plan of Treatment Upcoming Encounters Date Type Department Care Team (Late st Contact Info) Description 04/15/2025 8:30 AM CDT Office Visit [facility] [address] [facility] [address] [place] [address] Los Mccloud MD [address] [place] [address]. [address] [place] [address] documented as of this encounter Visit Diagnoses Not on filedocumented in this encounter Additional Health Concerns Infection Onset Date Last Indicated Resolved Time R/O COVID-19 12/13/2020 12/13/2020 12/15/2020 12:4 5 AM MACHINE OPERATOR COVID-19 12/13/2020 12/13/202001/12/2021 1:16 AM MACHINE OPERATOR documented as of this encounter Care Teams Fire Department Battalion Chief Relationship Specialty Start Date End Date Los Mccloud MD [address] [place] [address] PCP - General Internal Medicine 06/23/23 documented as of this encounter
--- OUTSIDE RECORDS SUMMARY | 2025-04-09 08:34 | XMS_ITS | Encounter Summary ---
Author Organization [facility] Address [address] [place] [address] Care Team Providers Care Bleach Packer Name Role Phone Los Mccloud MD Primary Care Provider Encounter Details Date Type Department Care Team (Late st Contact Info) Description 08/11/1999 Outpatient Historical [facility] [address] [place] [address] [address] [place] [address] Pillo Lugo MD [address] [facility] [address] [phone] Social History Tobacco Use Types Packs/Day Years Used Date Smoking Tobacco: Never Assessed Comments Unknown Sex and Gender Information Value Date Recorded Sex Assigned at Not on file Legal Sex Female 3:44 AM CYBER CRIME INVESTIGATOR Gender Identity Not on file Sexual Orientation Not on file documented as of this encounter Plan of Treatment Upcoming Encounters Date Type Department Care Team (Late st Contact Info) Description 04/15/2025 8:30 AM CDT Office Visit [facility] [address] [facility] [address] [place] [address] Los Mccloud MD [address] [place] [address]. [address] [place] [address] documented as of this encounter Visit Diagnoses Not on filedocumented in this encounter Additional Health Concerns Infection Onset Date Last Indicated Resolved Time R/O COVID-19 12/13/2020 12/13/2020 12/15/2020 12:4 5 AM CYBER CRIME INVESTIGATOR COVID-19 12/13/2020 12/13/202001/12/2021 1:16 AM CYBER CRIME INVESTIGATOR documented as of this encounter Care Teams Bleach Packer Relationship Specialty Start Date End Date Los Mccloud MD [address] [place] [address] PCP - General Internal Medicine 06/23/23 documented as of this encounter
--- OUTSIDE RECORDS SUMMARY | 2025-04-09 08:34 | XMS_ITS | Encounter Summary ---
Author Organization [facility] Address [address] [place] [address] Care Team Providers Care Tools Administrator Name Role Phone Los Mccloud MD Primary Care Provider Encounter Details Date Type Department Care Team (Late st Contact Info) Description 12/08/2004 Outpatient Historical [facility] [address] [place] [address] [address] [place] [address] Pillo Lugo MD [address] [facility] [address] [phone] Social History Tobacco Use Types Packs/Day Years Used Date Smoking Tobacco: Never Assessed Comments Unknown Sex and Gender Information Value Date Recorded Sex Assigned at Not on file Legal Sex Female 3:44 AM DRAGSAW OPERATOR Gender Identity Not on file Sexual Orientation Not on file documented as of this encounter Plan of Treatment Upcoming Encounters Date Type Department Care Team (Late st Contact Info) Description 04/15/2025 8:30 AM CDT Office Visit [facility] [address] [facility] [address] [place] [address] Los Mccloud MD [address] [place] [address]. [address] [place] [address] documented as of this encounter Visit Diagnoses Not on filedocumented in this encounter Additional Health Concerns Infection Onset Date Last Indicated Resolved Time R/O COVID-19 12/13/2020 12/13/2020 12/15/2020 12:4 5 AM DRAGSAW OPERATOR COVID-19 12/13/2020 12/13/202001/12/2021 1:16 AM DRAGSAW OPERATOR documented as of this encounter Care Teams Tools Administrator Relationship Specialty Start Date End Date Los Mccloud MD [address] [place] [address] PCP - General Internal Medicine 06/23/23 documented as of this encounter
--- OUTSIDE RECORDS SUMMARY | 2025-04-09 08:34 | XMS_ITS | Encounter Summary ---
Author Organization [facility] Address [address] [place] [address] Care Team Providers Care Supervisor Waterworks Name Role Phone Los Mccloud MD Primary Care Provider Encounter Details Date Type Department Care Team (Late st Contact Info) Description 10/16/2002 Outpatient Historical [facility] [address] [place] [address] [address] [place] [address] Pillo Lugo MD [address] [facility] [address] [phone] Social History Tobacco Use Types Packs/Day Years Used Date Smoking Tobacco: Never Assessed Comments Unknown Sex and Gender Information Value Date Recorded Sex Assigned at Not on file Legal Sex Female 3:44 AM LEAD SOLUTIONS ARCHITECT Gender Identity Not on file Sexual Orientation Not on file documented as of this encounter Plan of Treatment Upcoming Encounters Date Type Department Care Team (Late st Contact Info) Description 04/15/2025 8:30 AM CDT Office Visit [facility] [address] [facility] [address] [place] [address] Los Mccloud MD [address] [place] [address]. [address] [place] [address] documented as of this encounter Visit Diagnoses Not on filedocumented in this encounter Additional Health Concerns Infection Onset Date Last Indicated Resolved Time R/O COVID-19 12/13/2020 12/13/2020 12/15/2020 12:4 5 AM LEAD SOLUTIONS ARCHITECT COVID-19 12/13/2020 12/13/202001/12/2021 1:16 AM LEAD SOLUTIONS ARCHITECT documented as of this encounter Care Teams Supervisor Waterworks Relationship Specialty Start Date End Date Los Mccloud MD [address] [place] [address] PCP - General Internal Medicine 06/23/23 documented as of this encounter
--- OUTSIDE RECORDS SUMMARY | 2025-04-09 08:34 | XMS_ITS | Encounter Summary ---
Author Organization [facility] Address [address] [place] [address] Care Team Providers Care Pinsetter Mechanic Helper Name Role Phone Los Mccloud MD Primary Care Provider Encounter Details Date Type Department Care Team (Latest Contact Info) Description 07/22/2006 Outpatient Historical [facility] Pillo Lugo MD [address] [facility] [address] [address] Sprain and Strain of Ribs (Primary Dx) Social History Tobacco Use Types Packs/Day Years Used Date Smoking Tobacco: Never Assessed Comments Unknown Sex and Gender Information Value Date Recorded Sex Assigned at Not on file Legal Sex Female 3:44 AM CABLE TELEVISION LINE TECHNICIAN Gender Identity Not on file Sexual Orientation Not on file documented as of this encounter Plan of Treatment Upcoming Encounters Date Type Department Care Team (Late st Contact Info) Description 04/15/2025 8:30 AM CDT Office Visit [facility] Primary Care - [facility] [address] [place] [address] Los Mccloud MD [facility] [address] [place] [address] documented as of this encounter Visit Diagnoses Diagnosis Sprain of ribs- Primary documented in this encounter Additional Health Concerns Infection Onset Date Last Indicated Resolved Time R/O COVID-19 12/13/2020 12/13/2020 12/15/2020 12:4 5 AM CABLE TELEVISION LINE TECHNICIAN COVID-19 12/13/2020 12/13/2020 01/12/2021 1:16 AM CABLE TELEVISION LINE TECHNICIAN documented as of this encounter Care Teams Pinsetter Mechanic Helper Relationship Specialty Start Date End Date Los Mccloud MD [facility] [address] [place] [address] PCP - General Internal Medicine 06/23/23 documented as of this encounter
--- OUTSIDE RECORDS SUMMARY | 2025-04-09 08:34 | XMS_ITS | Encounter Summary ---
Author Organization [facility] Address [address] [place] [address] Care Team Providers Care Stereoplotter Operator Name Role Phone Los Mccloud MD Primary Care Provider Encounter Details Date Type Department Care Team (Late st Contact Info) Description 01/31/2001 Outpatient Historical [facility] [address] [place] [address] [address] [place] [address] Pillo Lugo MD [address] [facility] [address] [phone] Social History Tobacco Use Types Packs/Day Years Used Date Smoking Tobacco: Never Assessed Comments Unknown Sex and Gender Information Value Date Recorded Sex Assigned at Not on file Legal Sex Female 3:44 AM TITLE OFFICER Gender Identity Not on file Sexual Orientation Not on file documented as of this encounter Plan of Treatment Upcoming Encounters Date Type Department Care Team (Late st Contact Info) Description 04/15/2025 8:30 AM CDT Office Visit [facility] [address] [facility] [address] [place] [address] Los Mccloud MD [address] [place] [address]. [address] [place] [address] documented as of this encounter Visit Diagnoses Not on filedocumented in this encounter Additional Health Concerns Infection Onset Date Last Indicated Resolved Time R/O COVID-19 12/13/2020 12/13/2020 12/15/2020 12:4 5 AM TITLE OFFICER COVID-19 12/13/2020 12/13/202001/12/2021 1:16 AM TITLE OFFICER documented as of this encounter Care Teams Stereoplotter Operator Relationship Specialty Start Date End Date Los Mccloud MD [address] [place] [address] PCP - General Internal Medicine 06/23/23 documented as of this encounter
--- OUTSIDE RECORDS SUMMARY | 2025-04-09 08:34 | XMS_ITS | Encounter Summary ---
Author Organization [facility] Address [address] [place] [address] Care Team Providers Care Acute Dialysis Nurse Name Role Phone Los Mccloud MD Primary Care Provider Encounter Details Date Type Department Care Team (Late st Contact Info) Description 10/31/2004 Outpatient Historical [facility] Uli Michael MD [address] [place] [address] [place] [address] ANAL & RECTAL POLYP (Primary Dx) Social History Tobacco Use Types Packs/Day Years Used Date Smoking Tobacco: Never Assessed Comments Unknown Sex and Gender Information Value Date Recorded Sex Assigned at Not on file Legal Sex Female 3:44 AM ACUTE DIALYSIS NURSE Gender Identity Not on file Sexual Orientation Not on file documented as of this encounter Plan of Treatment Upcoming Encounters Date Type Department Care Team (Late st Contact Info) Description 04/15/2025 8:30 AM CDT Office Visit [facility] Primary Care - [address] [place] [address] Los Mccloud MD [address] [place] [address]. [address] [place] [address] documented as of this encounter Visit Diagnoses Diagnosis Anal and rectal polyp- Primary documented in this encounter Additional Health Concerns Infection Onset Date Last Indicated Resolved Time R/O COVID-19 12/13/2020 12/13/2020 12/15/2020 12:4 5 AM ACUTE DIALYSIS NURSE COVID-19 12/13/2020 12/13/2020 01/12/2021 1:16 AM ACUTE DIALYSIS NURSE documented as of this encounter Care Teams Acute Dialysis Nurse Relationship Specialty Start Date End Date Los Mccloud MD [address] [place] [address] [address] [place] [address] PCP - General Internal Medicine 06/23/23 documented as of this encounter
--- OUTSIDE RECORDS SUMMARY | 2025-04-09 08:34 | XMS_ITS | Encounter Summary ---
Author Organization [facility] Address [address] [place] [address] Care Team Providers Care Programmer Analyst Health It Name Role Phone Los Mccloud MD Primary Care Provider Encounter Details Date Type Department Care Team (Late st Contact Info) Description 04/24/2002 Outpatient Historical [facility] [address] [place] [address] [address] [place] [address] Pillo Lugo MD [address] [facility] [address] [phone] Social History Tobacco Use Types Packs/Day Years Used Date Smoking Tobacco: Never Assessed Comments Unknown Sex and Gender Information Value Date Recorded Sex Assigned at Not on file Legal Sex Female 3:44 AM BAG REPAIRER Gender Identity Not on file Sexual Orientation Not on file documented as of this encounter Plan of Treatment Upcoming Encounters Date Type Department Care Team (Late st Contact Info) Description 04/15/2025 8:30 AM CDT Office Visit [facility] [address] [facility] [address] [place] [address] Los Mccloud MD [address] [place] [address]. [address] [place] [address] documented as of this encounter Visit Diagnoses Not on filedocumented in this encounter Additional Health Concerns Infection Onset Date Last Indicated Resolved Time R/O COVID-19 12/13/2020 12/13/2020 12/15/2020 12:4 5 AM BAG REPAIRER COVID-19 12/13/2020 12/13/202001/12/2021 1:16 AM BAG REPAIRER documented as of this encounter Care Teams Programmer Analyst Health It Relationship Specialty Start Date End Date Los Mccloud MD [address] [place] [address] PCP - General Internal Medicine 06/23/23 documented as of this encounter
--- OUTSIDE RECORDS SUMMARY | 2025-04-09 08:34 | XMS_ITS | Encounter Summary ---
Author Organization [facility] Address [address] [place] [address] Care Team Providers Care Geologic Technician Name Role Phone Los Mccloud MD Primary Care Provider Encounter Details Date Type Department Care Team (Late st Contact Info) Description 04/11/1999 Outpatient Historical [facility] [address] [place] [address] [address] [place] [address] Pillo Lugo MD [address] [facility] [address] [address] Social History Tobacco Use Types Packs/Day Years Used Date Smoking Tobacco: Never Assessed Comments Unknown Sex and Gender Information Value Date Recorded Sex Assigned at Not on file Legal Sex Female 3:44 AM CHRISTMAS TREE CONTRACTOR Gender Identity Not on file Sexual Orientation Not on file documented as of this encounter Plan of Treatment Upcoming Encounters Date Type Department Care Team (Late st Contact Info) Description 04/15/2025 8:30 AM CDT Office Visit [facility] [address] [facility] [address] [place] [address] Los Mccloud MD [address] [place] [address]. [address] [place] [address] documented as of this encounter Visit Diagnoses Not on filedocumented in this encounter Additional Health Concerns Infection Onset Date Last Indicated Resolved Time R/O COVID-19 12/13/2020 12/13/2020 12/15/2020 12:4 5 AM CHRISTMAS TREE CONTRACTOR COVID-19 12/13/2020 12/13/202001/12/2021 1:16 AM CHRISTMAS TREE CONTRACTOR documented as of this encounter Care Teams Geologic Technician Relationship Specialty Start Date End Date Los Mccloud MD [address] [place] [address] PCP - General Internal Medicine 06/23/23 documented as of this encounter
--- OUTSIDE RECORDS SUMMARY | 2025-04-09 08:35 | XMS_ITS ---
Author Organization [facility] Address [address] [place] [address] [address] [place] [address] Care Team Providers Care District Superintendent Name Role Phone Rogers Los Primary Care Provider Norberto Antunez Unavailable [phone] REASON FOR VISIT 09/22 [employer] EGD auth Encounters Encounter Location Date Provider Diagnosis [facility], [address] [place] [address] 08/10/2024 Norberto Gomez Plan Of Treatment No Information Progress Notes * Mckenzie MCNEAL ADOB:1960 (63 yo F)Acc No.[id number]:08/10/2024 Patient: Mckenzie Gage :1960 A ge:63 Y S ex:Female Address:[address] [place] [address] [address], [place] [address] Subjective: * Chief Complaints: * 1 [employer] EGD auth * HPI: E GD Questionnaire: Date of Appointment 1 . F acmar G EC. Dr. Kimble and TONI Rosales [facility]. R terrence for EGD R UQP . G ERD/Heartburn/Reflux R eflux, Pantoprazole 40 mg. A bdominal Pain? E pigastric pain . * Medical History: * Surgical History: * Hospitalization/Major Diagno stic Procedure: * Medications: Objective: Assessment: Plan: * Treatment: * Procedure Codes: * true * Date: Generated for Elan hameed/Dany/eTransmitting on: 0 04/09/2025 08:35 AM CDT History and Physical Notes * HPI (History of Present Illness) Category Sub-Category Detail Notes Category Not es EGD Questionnaire Date of Appointment 09/22/2024 Facility [facility] Name and NPI [facility] Reason for EGD RUQP GERD/Heartburn/Reflux Reflux, Pantoprazo le 40 mg Abdominal Pain? Epigastric pain
--- OUTSIDE RECORDS SUMMARY | 2025-04-09 08:35 | XMS_ITS | Clinical Summary ---
Author Organization [facility] Address [address] [place] [address] Care Team Providers Care System Operator Name Role Phone Chevy Alejandro MD Unavailable [phone] Los Mccloud MD Primary Care Provider Source Comments [facility],non-owned Affiliates and Associated Physician Practices is amultiple site organization consisting of ambulatory clinics and hospital sitesin [place], [place], [place] and [place]. This disclosure is being madepursuant to the Care Everywhere program and may not contain all information available regarding this patient. Last updated 18.[facility] Allergies No known active allergies Medications * Be aware that medications may not be up to date on this document. Alwaysverify current medications with the patient. Calcium Carbonate-Nella min D (CALCIUM + D PO) Take by mouth. Activ e Multiple Vitamin (MULTI-VITAMIN S) TABS Take 1 (one) tablet by mouth Active Probiotic Product (PROBIOTIC PO) Activ e fluticasone propionate (Flonase) 50 MCG/ACT nasal spray TWO SPRAYS EACH NOSTRIL ONCE DAILY NEEDED FOR NASAL CONGESTION. 2 Active albuterol HFA (Proventil; Ventolin; Proair) 108 (90 Base) MCG/ACT inhaler Inhale 2 (two) puffs by mouth every 6 hours as needed 3 Active azelastine (Astelin) 0.1 % nasal spray [place] 2 (two) sprays into the nose as needed 2 Active latanoprost (Xalatan) 0.005 % ophthalmic solution INSTILL 1 DROP INTO BOTH EYES EVERY DAY AT BEDTIME 7.5 mL 11 3 Active atorvastatin (Lipitor) 10 MG tablet Take 1 (one) tablet by mouth once daily 3 Active diclofenac sodium EC (Voltaren) 75 MG tablet Take 1 (one) tablet by mouth 2 times daily 3 Active timolol maleate (Timoptic) 0.5 % ophthalmic solution Instill 1 (one) drop into both eyes every morning 15 mL 5 4 Active estradiol (Estrace) 0.1 MG/GM vaginal cream INSERT 1 G INTO THE VAGINA AT BEDTIME TWICE WEEKLY AT BEDTIME 42.5 g 3 4 Active nystatin (Mycostatin) 442372 UNIT/GM ointmentIndica tions:Lichen simplex chronicus Mix with the triamcinolone ointment and apply to external vulvar tissues twice daily. 30 g 30 g 1 4 Active triamcinolone acetonide (Kenalog) 0.1 % ointmentIndica tions:Lichen simplex chronicus Mix with the nystatin ointment and apply to external vulvar tissues twice daily. 30 g 30 g 1 4 Active metFORMIN ER 24hr (Glucophage XR) 500 MG tablet Take 1 (one) tablet by mouth once daily 4 Active pantoprazole EC (Protonix) 40 MG tablet Take 1 (one) tablet by mouth once daily 4 Active hydrOXYzine HCl (Atarax) 25 MG tablet Take 1 (one) tablet by mouth every 8 hours as needed 4 Active levothyroxine (Synthroid) 75 MCG tabletIndicati ons:Hypothyroi dism, acquired Take 1 (one) tablet by mouth daily before breakfast 90 tablet 3 5 Active valACYclovir (Valtrex) 500 MG tablet Take 1 (one) tablet by mouth once daily 90 tablet 3 5 Active Active Problems Problem Noted Date Diagnosed Date History of colon polyps 02/05/2024 02/05/20 24 Primary open angle glaucoma (POAG) of both eyes, mild stage 08/06/2023 Overview (08/06/2023): Patient apparently with suspicion of possible glaucoma over the past 5 years and has been monitored with serial testing. More recently I believe her referring office was concerned about new development of progressive thinning especially in the left eye. However we do note significant changes consistent with axial myopia prior to cataract extraction especially in the left eye where there might be diffuse ectasia/staphyloma based on OCT changes that make differentiating myopic changes from glaucoma difficult. On the other hand significant myopia does increase risk of glaucoma development even at physiologic pressures and we are continuing latanoprost both eyes with a goal of achieving mid normal intraocular pressures long-term as a precaution if this can be done with limited intervention with medication or laser trabeculoplasty. Gonioscopy shows wide open angles with mild trabecular meshwork pigmentation both eyes. Central corneal thickness suggest accurate intraocular pressures. Osman Ann MD 08/06/2023 10:33 AM Hypothyroid 12/25/2017 Acute cystitis without hematuria 07/03/2017 Prediabetes 05/22/2017 Atrophic vaginitis 12/21/2015 Mixed hyperlipidemia 02/11/2014 Arthralgia 09/27/2010 Hypothyroidism due to acquired atrophy of thyroi d 09/27/2010 Osteopenia 09/27/2010 Allergic rhinitis due to pollen 04/17/2005 Resolved Problems Problem Noted Date Diagnosed Date Resolved Date Screening for cervical cancer 05/13/2009 12/25/2017 Overview (05/30/2010): 05/31/09 normal, 12/17/07 WNL Other screening mammogram 05/13/2009 Overview (05/30/2010): 05/24/2010 normal, 03/02/08 Neg Encounters Date Type Department Care Team Description 02/08/2025 9:45 AM CDT Office Visit [facility] - Endocrinology [address] [place] [address] Fawad Stoll MD Hypothyroidism, acquired (Primary Dx) 02/08/2025 Travel from Last 3 Months Immunizations Immunization Administration Dates Next Due Covid Pfizer primary monoval ent 12+ yr 0.3mL Purple cap 12/18/2021,03/30/2021,03/08/2021 Td (Adult), 2 Lf Tetanus Tox oid, Adsorbed, Pf 08/06/2008 Family History Medical History Relation Name Comments Cancer - Colon Father Cancer - Breast Maternal Grandmother Hypertension Mother Cancer - Breast Other 1 None Known Paternal Aunt Dementia Paternal Grandmother Relation Name Status Comments Father Maternal Grandfather Maternal Grandmother Maternal Uncle Alive Mother Alive Other 1 Alive Other 2 Alive Other 3 Alive Paternal Aunt Paternal Grandfather Paternal Grandmother Paternal Uncle Alive half-brother 1 Alive half-brother 2 Alive half-brother 3 Alive half-brother 4 Alive half-brother 5 Alive half-brother 6 Alive Social History Tobacco Use Types Packs/Day Years Used Date Smoking Tobacco: Never Smokeless Tobacco: Never Tobacco Cessation:Counseling Given: Not Answered Alcohol Use Standard Drinks/Week Comments Yes 0 (1 standard drink = 0.6 oz pur e alcohol) very seldom PHQ-2 Answer Date Recorded Patient Health Questionnaire-2 Score 0 02/08/2025 Comments No Sex and Gender Information Value Date Recorded Sex Assigned at Not on file Legal Sex Female 7:41 AM MASTIC FLOOR LAYER Gender Identity Not on file Sexual Orientation Not on file Last Filed Vital Signs Vital Sign Reading Time Taken Comments Blood Pressure 126/80 02/08/2025 9:50 AM CDT Pulse 65 02/08/2025 9:50 AM CDT Temperature 36.8 C (98.3 F) 10/06/2019 2:15 PM MASTIC FLOOR LAYER Respiratory Rate 12 12/21/2015 7:57 AM MASTIC FLOOR LAYER Oxygen Saturation 95% 02/08/2025 9:50 AM CDT Inhaled Oxygen Concentration - - Weight 81.3 kg (179 lb 3.2 oz) 02/08/2025 9:50 A M CDT Height 157.5 cm (5' 2 ) 02/08/2025 9:50 AM CDT Body Mass Index 32.78 02/08/2025 9:50 AM CDT Plan of Treatment Upcoming Encounters Date Type Department Care Team (Late st Contact Info) Description 05/11/2025 2:20 PM CDT Office Visit [facility] - Ophthalmology [address] [place] [id number] Osman Ann MD [address] [place] [address] 02/14/2026 9:30 AM CDT Office Visit [facility] - Endocrinology [address] [place] [address] Fawad Stoll MD [address] [place] [address] Health Maintenance Due Date Last Done Comments COLOGUARD (AGES 45-75) - COLON CA SCREENING 1960 COLON MONITORING 1960 COLONOSCOPY - COLON CA SCREENING 1960 CT COLONOGRAPHY - COLON CA SCREENING 1960 Colorectal Cancer Screening 1960 FIT - COLON CA SCREENING 1960 FLEX SIG - COLON CA SCREENING 1960 HEPATITIS C SCREENING 10/14/1976 DTAP/TDAP/TD VACCINES (1 - Tdap) 08/07/2008 08/06/2008 PNEUMOCOCCAL VACCINE 50+ (1 of 1 - PCV) 2008 ZOSTER VACCINE (1 of 2) 2008 COVID-19 VACCINE (4 - 2023- season) 2024 12/18/2021, 03/30/2021, 03/08/2021 MEDICARE AWV CALENDAR YEAR 2024 INFLUENZA VACCINE (Season Ended) 2025 MAMMOGRAM 11/11/2026 11/11/2024, 10/25, 10/07/2023, Additional history exists SCREENING FOR DIABETES 01/26/2027 , 11/14/2019, 11/14/2019, Additional history exists Respiratory Syncytial Virus (RSV) Vaccine Pt: or over 60 yrs (1 - 1-dose 75+ series) 2033 BONE DENSITY TESTING Completed 04/07/2024, 11/20/20 DEPRESSION SCREENING Completed 02/08/2025, 12/02/2023, 10/24/2022 HEPATITIS B VACCINE Aged Out No longe r eligible based on patient's age to complete this topic HIB VACCINE Aged Out No longer eligi ble based on patient's age to complete this topic HPV VACCINE Aged Out No longer eligi ble based on patient's age to complete this topic MENINGOCOCCAL (Group B) VACCINE SHARED DECISION-MAKING Aged Out No longer eligible based on patient's age to complete this topic MENINGOCOCCAL GROUPS A/C/Y/W VACCINE Aged Out No longer eligible based on patient's age to complete this topic Procedures Procedure Name Priority Date/Time Associated Diagnosis Comments TSH+FREE T4 PANEL Routine 02/08/2025 10: 58 AM CDT Hypothyroidism, acquired MAMMO BILAT SCREENING W RAYO Routine 11/11/2024 12:57 PM MASTIC FLOOR LAYER Encounter for screening mammogram for malignant neoplasm of breast HEMOGLOBIN A1C (EXTERNAL RESULT ENTRY) Routine 01/27/2024 from Last 3 Months or Most Recently Relevant to Health Maintenance Results * TSH+FREE T4 PANEL (02/08/2025 10:58 AM CDT) TSH 1.060 0.450 - 4.500 uIU/mL [facility] INSURANCE BILL T4 Free 1.53 0.82 - 1.77 ng/dL [facility] INSURANCE BILL Blood BLOOD SPECIMEN / Unknown 02/08/2025 10:58 AM CDT 02/08/2025 Narrative [facility] INSURANCE BILL - 02/09/2025 9:07 AM CDT Performed at: [address] [place] [id number] [place] Worker Helper: Killian Woods PhD, Phone: [phone] us Fawad Stoll MD LAB - CHEMISTRY ORDERABLES F inal Result [facility] INSURANCE BILL [address] [place] [address] * Mammo Bilat Screening W Rayo (11/11/2024 12:57 PM MASTIC FLOOR LAYER) Anatomical Region Laterality Modality Breast Bilateral Mammography 11/11/2024 2:17 PM [employer]STIC FLOOR LAYER Impressions 11/11/2024 2:20 PM MASTIC FLOOR LAYER IMPRESSION: No mammographic evidence of malignancy in either breast. ASSESSMENT: BIRADS Category 1: Negative mammogram. RECOMMENDATION: Bilateral screening mammogram in one year. Thank you for allowing us to participate in the care of your patient. [facility] utilizes [employer] as a reminder system to notify patients of their next recommended mammogram. > Interpreting Provider: Brittanie Yousif MD on 11/11/2024 2:20 PM Narrative 11/11/2024 2:20 PM MASTIC FLOOR LAYER EXAMINATION: Digital screening mammogram. Low-dose full-field digital breast tomosynthesis examination was performed with synthetic 2D images. Computer assisted detection was utilized. DATE: 11/11/2024 12:57 PM PRIOR: 2022 and prior mammograms dating back to 2020. BREAST PARENCHYMAL DENSITY: There are scattered areas of fibroglandular density. FINDINGS: No suspicious masses, areas of architectural distortion or microcalcifications are evident on synthetic 2D mammogram or tomosynthesis images. There has been no significant interval change since the prior examination. Chevy Alejandro MD MAMMO ORDERABLES Final Resu lt * HEMOGLOBIN A1C (EXTERNAL RESULT ENTRY) (01/27/2024) Hemoglobin A1c (EXTERNAL RESULT) 6.1 % Blood BLOOD SPECIMEN / Unknown 01/27/2024 Historical Provider LAB - CHEMISTRY ORDERABLE S Final Result from Last 3 Months or Most Recently Relevant to Health Maintenance Insurance [employer] ADV * Guarantor: MCKENZIE MCNEAL Account Type Relation to Patient Date of Phone Billing Address Personal/Family 1960 [address] [place] [address] * Guarantor: MCKENZIE MCNEAL Account Type Relation to Patient Date of Phone Billing Address Personal/Family 1960 [address] [place] [address] Care Teams System Operator Relationship Specialty Start Date End Date Los Mccloud MD [address] [place] [address] PCP - General Internal Medicine 02/04/23 [place] [address] [place], [place] [id number] Obstetrics and Gynecology 08/28/21
--- OUTSIDE RECORDS SUMMARY | 2025-04-09 08:35 | XMS_ITS | Clinical Summary ---
Author Organization [facility] Address [address] [place] [address] Care Team Providers Care Forest Resource Specialist Name Role Phone Los Mccloud MD Primary Care Provider Allergies No known active allergies Medications calcium carbonate (CALCIUM 600 ORAL) Take by mouth. Active levothyroxine 75 mcg tablet TAKE 1 TABLET BY MOUTH DAILY BEFORE BREAKFAST FOR UNDERACTIVE THYROID Active valACYclovir (VALTREX) 500 mg tablet Take 500 mg by mouth. Active mupirocin (BACTROBAN) 2 % Ointment Apply to affected area daily. 22 Gram Active Additional Information Patient not taking.Reported on 03/26/2025 triamcinolone acetonide (KENALOG) 0.1 % Cream Apply to affected area. Active estradioL (ESTRACE) 0.01% (0.1 mg/g) vaginal cream Insert 0.01 Grams vaginally twice weekly. Active azelastine (ASTELIN) 137 mcg/actuation nasal sprayIndicatio ns:Sinusitis, unspecified chronicity, unspecified location ADMINISTER 2 SPRAYS IN EACH NOSTRIL 2 TIMES DAILY. 60 mL 1 Active Additional Information Patient not taking.Reported on 03/26/2025 fluticasone propionate (FLONASE) 50 mcg/spray [place], Suspension nasal inhaler TWO SPRAYS EACH NOSTRIL ONCE DAILY NEEDED FOR NASAL CONGESTION. Active diclofenac sodium (VOLTAREN) 75 mg Tablet, Delayed Release (E.C.)Indicati ons:Ankle pain, unspecified chronicity, unspecified laterality Take 1 Tablet (75 mg) by mouth 2 times daily. 30 Tablet 023 Active Additional Information Patient not taking.Reported on 03/26/2025 latanoprost (XALATAN) 0.005 % solution Administer 1 Drop in both eyes daily at bedtime. 024 Active timoloL maleate (TIMOPTIC) 0.5% solution Administer 2 Drops in both eyes see administration instructions. ONE DROP IN EACH EYE IN THE MORNING Active hydrOXYzine HCL (ATARAX) 25 mg tabletIndicati ons:Situationa l anxiety Take 1 Tablet (25 mg) by mouth every 8 hours as needed for Anxiety or Insomnia. 30 Tablet 2 Active Additional Information Patient not taking.Reported on 03/26/2025 atorvastatin (LIPITOR) 10 mg tabletIndicati ons:Mixed hyperlipidemia ,Obesity (BMI 30.0-34.9),Hyp othyroidism due to acquired atrophy of thyroid Take 1 Tablet (10 mg) by mouth daily. 90 Tablet 3 025 Active metFORMIN (GLUCOPHAGE XR) 500 mg Extended Release 24 hour tabletIndicati ons:Obesity (BMI 30.0-34.9),Pre diabetes Take 1 Tablet (500 mg) by mouth daily with breakfast. 100 Tablet 1 025 Active oxyBUTYnin (DITROPAN) 5 mg tabletIndicati ons:Urinary urgency Take 1 Tablet (5 mg) by mouth 3 times daily. 100 Tablet 1 025 Active pantoprazole (PROTONIX) 40 mg Tablet, Delayed Release (E.C.)Indicati ons:Gastroesop hageal reflux disease, unspecified whether esophagitis present Take 1 Tablet (40 mg) by mouth daily. 100 Tablet 1 025 Active pantoprazole (PROTONIX) 20 mg Tablet, Delayed Release (E.C.)Indicati ons:Gastroesop hageal reflux disease, unspecified whether esophagitis present Take 1 Tablet (20 mg) by mouth daily. 90 Tablet 2 023 2024 Discontinued(R eorder) metFORMIN (GLUCOPHAGE XR) 500 mg Extended Release 24 hour tabletIndicati ons:Obesity (BMI 30.0-34.9),Pre diabetes Take 1 Tablet (500 mg) by mouth daily with breakfast. 100 Tablet 1 024 2024 Discontinued(R eorder) atorvastatin (LIPITOR) 10 mg tabletIndicati ons:Mixed hyperlipidemia ,Obesity (BMI 30.0-34.9),Hyp othyroidism due to acquired atrophy of thyroid TAKE 1 TABLET EVERY DAY 90 Tablet 3 024 2024 Discontinued(R eorder) pantoprazole (PROTONIX) 20 mg Tablet, Delayed Release (E.C.)Indicati ons:Gastroesop hageal reflux disease, unspecified whether esophagitis present Take 2 Tablets (40 mg) by mouth daily. 100 Tablet 1 025 2024 Discontinued Active Problems Problem Noted Date Diagnosed Date Acute cystitis without hematuria 07/03/2017 Prediabetes 05/22/2017 Mixed hyperlipidemia 02/11/2014 Osteopenia 09/27/2010 Hypothyroidism due to acquired atrophy of thyroi d 09/27/2010 Arthralgia 09/27/2010 Allergic rhinitis due to pollen 04/17/2005 Resolved Problems Problem Noted Date Diagnosed Date Resolved Date Left foot pain 05/19/2018 12/27/2020 URI (upper respiratory infection) 12/21/2014 12/27/2020 Routine general medical exam ination at a health care facility 09/27/2010 12/27/2020 Sprain of ribs 07/22/2006 07/02/2008 Pain in limb 07/05/2005 07/02/2008 Encounters Date Type Department Care Team Description 03/26/2025 10:30 AM CDT Office Visit [address] [place] [id number] Magda Clay ANP Urinary urgency (Primary Dx); Mixed hyperlipidemia; Obesity (BMI 30.0-34.9); Hypothyroidism due to acquired atrophy of thyroid; Gastroesophageal reflux disease, unspecified whether esophagitis present; Prediabetes 03/26/[address] [place] [address] Magda Clay ANP Gastroesophageal reflux disease, unspecified whether esophagitis present 02/10/2025 External Device Data ST[facility] ABSTRACTION Provider, Abstract 02/03/2025 External Device Data ST[place] ABSTRACTION Provider, Abstract 02/02/2025 External Device Data [place] ABSTRACTION Provider, Abstract 01/30/2025 External Device Data [place] ABSTRACTION Provider, Abstract 01/30/2025 External Device Data ST[place] ABSTRACTION Provider, Abstract 01/27/2025 External Device Data ST[place] ABSTRACTION Provider, Abstract 01/27/2025 External Device Data ST[place] ABSTRACTION Provider, Abstract 01/13/2025 External Device Data STL ABSTRACTION Provider, Abstract from Last 3 Months Immunizations Immunization Administration Dates Next Due (PFIZER)(12 YR UP) COVID-19 VACCINE - EMERGENCY USE AUTHORIZATION, MRNA, [id number](PF) 30 MCG/0.3 ML IM SUSP 12/18/2021 (TDVAX)(7 YRS UP) TETANUS AN D DIPHTHERIA TOXOIDS, ADSORBED (2 LF OF TETANUS TOXOID AND 2 LF OF DIPHTHERIA TOXOID), 0.5ML (PF), IM 08/06/2008 Family History Medical History Relation Name Comments Colon Cancer Father Navid Stroke Maternal Grandfather Rakesh Breast Cancer Maternal Grandmother Susan Healthy Mother Brittanie junior Hypertension Mother Brittanie junior Relation Name Status Comments Father Navid Alive Maternal Grandfather Rakesh Alive Maternal Grandmother Susan Alive Mother Brittanie junior Alive Social History Tobacco Use Types Packs/Day Years Used Date Smoking Tobacco: Never Passive Smoke Exposure: Never Smokeless Tobacco: Never Alcohol Use Standard Drinks/Week Comments Yes 3 (1 standard drink = 0.6 oz pur e alcohol) Comments No Sex and Gender Information Value Date Recorded Sex Assigned at Not on file Legal Sex 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[employer] Gender Identity Not on file Sexual Orientation Not on file Occupation Industry Job Start Date Job End Date Not on file Not on file Not on file Not on file Last Filed Vital Signs Vital Sign Reading Time Taken Comments Blood Pressure 140/90 03/26/2025 10:07 AM CDT Pulse 72 03/26/2025 10:07 AM CDT Temperature 36.1 C (96.9 F) 03/26/2025 10:07 AM CDT Respiratory Rate 16 10/05/2024 10:1 6 AM MACHINE STUFFER [employer] Oxygen Saturation 98% 03/26/2025 10: 07 AM CDT Inhaled Oxygen Concentration - - Weight 80.2 kg (176 lb 14.4 oz) 025 10:07 AM CDT Height 157.5 cm (5' 2 ) 03/26/2025 10:0 7 AM CDT Body Mass Index 32.36 03/26/2025 10:07 AM CDT Plan of Treatment Upcoming Encounters Date Type Department Care Team (Late st Contact Info) Description 04/15/2025 8:30 AM CDT Office Visit [facility] [address] [place] [address] Los Mccloud MD [address] [place] [address] Health Maintenance Due Date Last Done Comments FIT-DNA Q 3 years 2003 FIT/FOBT Q 1 year 2003 Flex Sig/CT Colonography Q 5 years 2003 DTAP/TDAP/TD VACCINES (1 - Tdap) 08/07/2008 08/06/20 08 PNEUMOCOCCAL VACCINE 50+ YEA RS (1 of 1 - PCV) 2008 ZOSTER VACCINE (1 of 2) 2008 COVID-19 Vaccine (4 - 2023-2 5 season) 2024 12/18/2021, 03/30/2021, 03/08/2021 Medicare [place] Preventative Visit/Annual Wellness Visit 11/25/2024 03/24/2024, 12/02/2023, 02/06/2023, Additional history exists BREAST CANCER SCREENING 11/11/2025 11/11/20 24, 11/11/2024, 11/11/2024, Additional history exists Pre-Diabetes and Diabetes Screening 10/01/2027 10/01/2024, 01/27/2024, 08/15/2023, Additional history exists COLORECTAL SCREENING 02/02/2029 02/03/2024, 02/03/2024, 08/28/2018, Additional history exists Colorectal Cancer Screening 02/02/2029 OSTEOPOROSIS SCREENING 04/07/2029 , 04/07/2024, 11/20/2017, Additional history exists RSV VACCINE (60+ or ) (1 - 1-dose 75+ series) 2033 INFLUENZA VACCINE Completed 10/05/2024, , 01/01/2022, Additional history exists Procedures Procedure Name Priority Date/Time Associated Diagnosis Comments POC URINALYSIS DIPSTICK AUTOMATED Routine 03/26/2025 10:46 AM CDT Urinary urgency MAMMO SCREENING BILAT Routine 11/11/2024 2:51 PM MACHINE STUFFER [employer] HEMOGLOBIN A1C Routine 10/01/2024 8:23 AM MACHINE STUFFER [employer] Prediabetes XR DEXA BONE DENSITY AXIAL 1 OR MORE SITES Routine 04/07/2024 9:46 AM CDT Postmenopausal COLONOSCOPY REPORT Routine 02/03/2024 10 :15 AM CDT from Last 3 Months or Most Recently Relevant to Health Maintenance Results * POC URINALYSIS DIPSTICK AUTOMATED (03/26/2025 10:46 AM CDT) COLOR UA POC Yellow Pale to Dark Yellow [facility] CLARITY UA POC Clear Clear, Other ME [facility] GLUCOSE UA POC Negative Negative, Normal [facility] BILIRUBIN UA POC Negative Negative [facility] KETONES UA POC Negative Negative [facility] SPECIFIC GRAVITY UA POC 1.015 1.000 - 1.030 [facility] BLOOD UA POC Negative Negative [facility] PH UA POC 5.0 5.0 - 8.0 [facility] PROTEIN UA POC Negative Negative [facility] UROBILINOGEN UA POC 0.2 <2.0 mg/dL [facility] NITRITE UA POC Negative Negative [facility] LEUKOCYTE ESTERASE UA POC Negative Negative [facility] KIT LOT NUMBER POC [phone] [facility] KIT EXP DATE POC 06/24/2025 [facility] Urine 03/26/2025 10:4 6 AM CDT us Magda Clay ANP POINT OF CARE TESTING Final R esult [facility] CLIA# [id number] [address] [place] [address] * MAMMO SCREENING BILAT (11/11/2024 2:51 PM MACHINE STUFFER AUTOMATIC) Anatomical Region Laterality Modality Breast Bilateral Mammography Abstract Provider MAMMO ORDERABLES Final Result * (ABNORMAL) HEMOGLOBIN A1C (10/01/2024 8:23 AM MACHINE STUFFER AUTOMATIC) HEMOGLOBIN A1C 6.4(H) <5.7 % of total Hgb [employer] Comment: For someone without known diabetes, a hemoglobin A1c value between 5.7% and 6.4% is consistent with prediabetes and should be confirmed with a follow-up test. For someone with known diabetes, a value <7% indicates that their diabetes is well controlled. A1c targets should be individualized based on duration of diabetes, age, comorbid conditions, and other considerations. This assay result is consistent with an increased risk of diabetes. Currently, no consensus exists regarding use of hemoglobin A1c for diagnosis of diabetes for children. ESTIMATED AVERAGE GLUCOSE (MG/DL) 137 mg/dL [employer] adrian Guo ESTIMATED AVERAGE GLUCOSE (MMOL/L) 7.6 mmol/L [employer] Comment: FASTING:YES FASTING: YES Test Performed at: [place] [place] [address] [place] [address] Kevin Sweeney Blood 10/01/2024 8:23 AM MACHINE STUFFER AUTOMATIC 10/01/2024 8:23 AM MACHINE STUFFER AUTOMATIC Los Mccloud MD CHEMISTRY ORDERABLES Fi nal Result [facility] [phone] [facility] [place] [address] [place] [address] * XR DEXA BONE DENSITY AXIAL 1 OR MORE SITES (04/07/2024 9:46 AM CDT) Anatomical Region Laterality Modality Digital Radiogra phy 04/07/2024 9:46 AM CDT Impressions 04/07/2024 10:23 AM CDT IMPRESSION: Normal bone mineral density by WHO criteria. This is a summary page. Please refer to the complete detailed report found in the Imaging Section of the [facility] EMR, including absolute bone mineral density values. Comments: None. Comparison population: [place], Race: A major osteoporotic fracture is defined as a fracture of the spine, forearm, hip or shoulder. Definitions: Normal: T-score greater than or equal to -1.0 Osteopenia T-score less than -1.0 and greater than -2.5 Osteoporosis: T-score less than or equal to -2.5 Follow-up Recommendations: Patients without high risk factors for osteoporosis T-score -1.0 to -1.5 - Consider repeat BMD in 5-10 years T-score -1.5 to - 2.0 - Consider repeat BMD in 3-5 years T-score -2.0 to - 2.5 - Consider repeat BMD every 2 years Patients on treatment for osteoporosis 1-2 years after initiation of treatment and every 2 years thereafter DICTATION LOCATION: Location [address] [place] [address] 04/07/2024 10:23 AM CDT EXAMINATION: BONE DENSITY STUDY (DXA) DATE: 04/07/2024 9:46 AM HISTORY: Postmenopausal. Prior bone density: 11/20/2017. PROCEDURE: Planar images of the lumbar spine and/or hip(s) using a [employer] Online DEXA scanner for bone mineral density determination (BMD). QUALITY OF EXAM: Satisfactory. FINDINGS: Lumbar spine (L1-L4): T-Score: -0.3 Left femoral neck: T-Score: -0.5 Right femoral neck: T-Score: -0.5 Left total hip: T-Score: 0.5 Right total hip: T-Score: 0.4 Statistical change: Since the prior bone density examination from 11/20/2017, there has been a 2.0% increase in bone mineral density in the lumbar spine, which is not statistically significant. There has been a 2.3% decrease in bone mineral density in the left femoral neck, which is not statistically significant. There has been a 0.7% increase in bone mineral density in the right femoral neck, which is not statistically significant. A statistically significant change is defined as a change of greater than 2.5 standard deviations in the least significant difference from the prior study. Least significant differences are defined as follows: Lumbar spine: +/- 0.010 g/cm2 Femoral neck: +/- 0.014 g/cm2 Forearm radius 33%: +/- 0.020 g/cm2 FRAX FRACTURE RISK ASSESSMENT: Risk factors: Secondary osteoporosis. 10 YEAR PROBABILITY OF FRACTURE: Major Osteoporotic: 6.9% Hip: 0.3% Procedure Note Maxime Duque MD - 04/07/2024 EXAMINATION: BONE DENSITY STUDY (DXA) DATE: 04/07/2024 9:46 AM HISTORY: Postmenopausal. Prior bone density: 11/20/2017. PROCEDURE: Planar images of the lumbar spine and/or hip(s) using a [employer] Online DEXA scanner for bone mineral density determination (BMD). QUALITY OF EXAM: Satisfactory. FINDINGS: Lumbar spine (L1-L4): T-Score: -0.3 Left femoral neck: T-Score: -0.5 Right femoral neck: T-Score: -0.5 Left total hip: T-Score: 0.5 Right total hip: T-Score: 0.4 Statistical change: Since the prior bone density examination from 11/20/2017, there has been a 2.0% increase in bone mineral density in the lumbar spine, which is not statistically significant. There has been a 2.3% decrease in bone mineral density in the left femoral neck, which is not statistically significant. There has been a 0.7% increase in bone mineral density in the right femoral neck, which is not statistically significant. A statistically significant change is defined as a change of greater than 2.5 standard deviations in the least significant difference from the prior study. Least significant differences are defined as follows: Lumbar spine: +/- 0.010 g/cm2 Femoral neck: +/- 0.014 g/cm2 Forearm radius 33%: +/- 0.020 g/cm2 FRAX FRACTURE RISK ASSESSMENT: Risk factors: Secondary osteoporosis. 10 YEAR PROBABILITY OF FRACTURE: Major Osteoporotic: 6.9% Hip: 0.3% IMPRESSION: Normal bone mineral density by WHO criteria. This is a summary page. Please refer to the complete detailed report found in the Imaging Section of the [facility] EMR, including absolute bone mineral density values. Comments: None. Comparison population: [place], Race: A major osteoporotic fracture is defined as a fracture of the spine, forearm, hip or shoulder. Definitions: Normal: T-score greater than or equal to -1.0 Osteopenia T-score less than -1.0 and greater than -2.5 Osteoporosis: T-score less than or equal to -2.5 Follow-up Recommendations: Patients without high risk factors for osteoporosis T-score -1.0 to -1.5 - Consider repeat BMD in 5-10 years T-score -1.5 to - 2.0 - Consider repeat BMD in 3-5 years T-score -2.0 to - 2.5 - Consider repeat BMD every 2 years Patients on treatment for osteoporosis 1-2 years after initiation of treatment and every 2 years thereafter DICTATION LOCATION: Location 9 - [facility] us Los Mccloud MD DIAGNOSTIC IMAGING ARMANDO PAULINO Final Result * COLONOSCOPY REPORT (02/03/2024 10:15 AM CDT) us Abstract Provider GI PROCEDURE ORDERABLES Final Result Performing Organization Address City/State/[facility] Co de Phone Number [facility]# [id number] [address] [place] [address] from Last 3 Months or Most Recently Relevant to Health Maintenance Insurance [employer] [facility] [employer] [facility] Care Teams Forest Resource Specialist Relationship Specialty Start Date End Date Los Mccloud MD [address] [place] [address] PCP - General Internal Medicine 06/23/23
--- OUTSIDE RECORDS SUMMARY | 2025-04-09 08:35 | XMS_ITS | Patient Health Record ---
Author Organization [facility] Address [address] [place] [address] Care Team Providers Care Furniture Rental Consultant Name Role Phone Shayla Mccloudnnathan Primary Care Provider Norberto Antunez Unavailable [phone] Shantel Dumont Unavailable [phone] Allergies No Known Allergies Reason For Referral Referral Organization [facility] Referring Provider First Name Norberto Referring Provider Last Name [facility] Referring Provider Speciality Gastroente rology Referred Organization [facility] Referred Provider Norberto Gomez Referred Address [address],[place], [place],[address], Referred Provider Specialty Gastroentero logy Referral Priority Routine Medications Medication SIG (Take, Route, Frequency, Duration) Notes Start Date End Date Status OTC/Vitamins Biotin, MVI Activ e Levothyroxine Sodium Active Probiotic Active Pantoprazole Sodium 40 MG TAKE 1 TABLET EVERY DAY for 90 Active Valchlor Active Atorvastatin Calcium Active Social History Tobacco Use: Social History Observation Description Date Details (start date - stop date) Never Smoker NA - NA Tobacco Use/Smoking Question Answer Notes Are you a nonsmoker Problems Problem Type SNOMED Code ICD Code Onset Dates Problem Status W/U Status Risk Notes Problem 141345250 History of colon polyps (Z86.010) Active confirmed 2 polyps DDB 2018 Problem 652995286 Acid reflux (K21.9) Active confirmed Vital Signs Height 62 in 08/10/2024 Weight 173 lbs 08/10/2024 BMI 31.64 kg/m2 08/10/2024 Procedures Procedure Date Ordered Date Performed Result Body Sit e Upper Endoscopy 08/10/2024 N/A Encounters Encounter Location Date Provider Diagnosis [facility], [facility] [address] [place] [address] 08/10/2024 Shantel Dumont Acid reflux K21.9 ; RUQ pain R10.11 and Midepigastric pain R10.13 [facility], [facility] [address] [place] [address] 08/10/20[facility] [address] [place] [address] 08/10/2024 [facility] Assessments Encounter Date Diagnosis (ICD Code) Assessment Notes Treatment Notes Treatment Clinical Notes Section Notes 08/10/2024 Acid reflux (ICD-10 - K21.9) ACID REFLUX, RU Q PAIN: Is experiencing an abnormal taste in her mouth daily. Mid epigastric/right upper quadrant pain occurs intermittently. Worsens with palpation and improves with massage. Remains on pantoprazole 20 mg at night. Last EGD 2008. Differentials include uncontrolled GERD, hiatal hernia, nonulcer dyspepsia, gastritis, esophagitis, PUD, H. pylori, celiac disease, gallbladder conditions, and others. 08/10/2024 RUQ pain (ICD-10 - R10.11) ACID REFLUX, RUQ PAIN: Is experiencing an abnormal taste in her mouth daily. Mid epigastric/right upper quadrant pain occurs intermittently. Worsens with palpation and improves with massage. Remains on pantoprazole 20 mg at night. Last EGD 2008. Differentials include uncontrolled GERD, hiatal hernia, nonulcer dyspepsia, gastritis, esophagitis, PUD, H. pylori, celiac disease, gallbladder conditions, and others. 08/10/2024 Midepigastric pain (ICD-10 - R10.13) ACID REFLUX, RUQ PAIN: Is experiencing an abnormal taste in her mouth daily. Mid epigastric/right upper quadrant pain occurs intermittently. Worsens with palpation and improves with massage. Remains on pantoprazole 20 mg at night. Last EGD 2008. Differentials include uncontrolled GERD, hiatal hernia, nonulcer dyspepsia, gastritis, esophagitis, PUD, H. pylori, celiac disease, gallbladder conditions, and others. 08/10/2024 Other Following my visit with Mckenzie, I recommend the followin. Stop pantoprazole 20 mg. Start pantoprazole 40 mg daily. Encouraged her to take 30 minutes prior to morning meal is separate from levothyroxine. 2. Reviewed antireflux diet and lifestyle modifications. Handout given for her review at home. 3. Schedule EGD in the future. Procedure risks, benefits, indications, and alternatives were discussed. She verbalized understanding and wishes to proceed. 4. Pending results of EGD, she may warrant ultrasound if no improvement of symptoms. Mckenzie verbalized a clear understanding of the plan and recommendations. All questions answered. She may call our office for new GI complaints or alarm symptoms as needed. ACID REFLUX, RUQ PAIN: Is experiencing an abnormal taste in her mouth daily. Mid epigastric/right upper quadrant pain occurs intermittently. Worsens with palpation and improves with massage. Remains on pantoprazole 20 mg at night. Last EGD 2008. Differentials include uncontrolled GERD, hiatal hernia, nonulcer dyspepsia, gastritis, esophagitis, PUD, H. pylori, celiac disease, gallbladder conditions, and others. Plan Of Treatment Pending Test Test Name Order Date Upper Endoscopy 08/10/2024 Insurance Providers Payer Name Payer Address Payer Phone Subscriber Number Group Number Insured Name Patient Relationship to Insured Coverage Start Date Coverage End Date [employer] P[employer] [address] [address] [place] [address] [id number] Mckenzie Mcneal Self - patient is the insured Medical (General) History Medical History History ICD Code Colon Polyps GERD Thyroid Disease Surgical History Surgery Date(Month/Year) Colonoscopy 01/2024 Upper Endoscopy 2019 Tonsillectomy Uterine Ablation Cataract Surgery C Section x2
--- OUTSIDE RECORDS SUMMARY | 2025-04-09 08:35 | XMS_ITS | Clinical Summary ---
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 Name Role Phone Provider, None Primary Care Provider Unavailabl e Allergies No known active allergies Medications No known medications Social History Tobacco Use Types Packs/Day Years Used Date Smoking Tobacco: Never Smokeless Tobacco: Never Tobacco Cessation:Counseling Given: Not Answered Alcohol Use Standard Drinks/Week Comments Yes 0 (1 standard drink = 0.6 oz pur e alcohol) Ocassionally Comments No Sex and Gender Information Value Date Recorded Sex Assigned at Not on file Legal Sex Female 2:48 AM CDT Gender Identity Not on file Sexual Orientation Not on file Last Filed Vital Signs Vital Sign Reading Time Taken Comments Blood Pressure 144/86 07/22/2023 11:15 PM CDT Pulse 66 07/22/2023 11:15 PM CDT Temperature 37 C (98.6 F) 07/22/2023 11:15 PM CDT Respiratory Rate 16 07/22/2023 11:15 PM CDT Oxygen Saturation 98% 07/22/2023 11:15 PM CDT Inhaled Oxygen Concentration - - Weight 76.2 kg (168 lb) 07/22/2023 9:43 PM CDT Height 157.5 cm (5' 2 ) 07/22/2023 9:43 PM CDT Body Mass Index 30.73 07/22/2023 9:43 PM CDT Plan of Treatment Health Maintenance Due Date Last Done Comments Hepatitis C Virus (HCV) Screening 1960 TdaP Immunization 1958 Colonoscopy 2003 Colorectal Cancer Screening 2003 Cologuard 2008 Immunochemical Fecal Occult Blood 2008 Pneumococcal Immunization (50+ years) (1 of 1 - PCV) 2008 Zoster Immunization (1 of 2) 2008 DEXA Bone Density 11/20/2019 11/20/2017 Mammogram 10/11/2023 10/11/2022, 09/25, 08/24/2015, Additional history exists SARS-COV-2 Immunization ( - season) 2024 12/18/2021, 03/30/2021, 03/08/2021 Influenza Immunization (Season Ended) 2025 Respiratory Syncytial Virus (RSV) Immunization (Adult) (1 - 1-dose 75+ series) 2033 DTaP/Tdap/Td Immunization Discontinued 08/06/2008 Hepatitis B Immunization Aged Out No longer eligible based on patient's age to complete this topic Human Papillomavirus (HPV) Immunization Aged Out No longer eligible based on patient's age to complete this topic Meningococcal Immunization (ACWY) Aged Out No longer eligible based on patient's age to complete this topic Rotavirus Immunization Aged Out No lo nger eligible based on patient's age to complete this topic Insurance [place] [address] [id number] Crossing Guard Relationship Specialty Start Date End Date Provider, None [place] PCP - General 09/18/22
--- OUTSIDE RECORDS SUMMARY | 2025-04-09 08:35 | XMS_ITS | Encounter Summary ---
Author Organization [facility] Address [address] [place] [address] Care Team Providers Care Astronomy Department Chair Name Role Phone Los Mccloud MD Primary Care Provider Encounter Details Date Type Department Care Team (Latest Contact Info) Description 08/06/2008 Outpatient Historical [facility] Dflt Department Pillo Lugo MD [address] [facility] [address] [id number] Pain in Joint, Site Unspecified Social History Tobacco Use Types Packs/Day Years Used Date Smoking Tobacco: Never Alcohol Use Standard Drinks/Week Comments No 0 (1 standard drink = 0.6 oz pur e alcohol) Comments No Sex and Gender Information Value Date Recorded Sex Assigned at Not on file 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 [place] [address] PCP - General Internal Medicine 06/23/23 documented as of this encounter
[2025-04-09 08:43] VITALS: BP 188/81; PULSE 61; RESP 16; TEMP 36.9; O2SAT 97
--- NOTE | 2025-04-09 09:12 | ED_ITS ---
HPI - URI/Sore Throat General Chief Complaint: Upper Respiratory Infection Stated Complaint: cough Source: patient and RN notes reviewed Mode of arrival: ambulatory Limitations: no limitations History of Present Illness HPI Narrative: 64-year-old female presents Express Care complaining for upper respiratory symptoms for 3 days. Patient reports cough, congestion, sore throat. Patient took [id number] cough medicine without relief. Patient reports having a dry cough at times and other times productive cough with yellow sputum production. Patient states the cough occurs frequently can be exacerbated by taking deep breaths. Patient denies any fevers, body aches, chills, chest pain, shortness of breath. Patient denies any sick contacts but was recently out of town. Related Data Home Medications Medication Instructions Recorded Confirmed Last Taken Type atorvastatin 10 mg tablet mg 04/09/25 Unknown History estradiol 0.01% (0.1 mg/gram) vaginal 04/09/25 Unknown History vaginal cream levothyroxine 75 mcg tablet mcg 04/09/25 Unknown History metformin 500 mg tablet,extended mg PO 04/09/25 Unknown History release 24 hr pantoprazole 40 mg tablet,delayed mg PO 04/09/25 Unknown History release Allergies Allergy/AdvReac Type Severity Reaction Status Date / Time No Known Allergies Allergy Verified 04/09/25 08:39 Review of Systems Review of Systems: CONSTITUTIONAL: Denies fever, chills, body aches, or sweats. EYES: Denies visual changes, redness, or discharge. ENT: Negative for rhinorrhea and otalgia. Positive for congestion and sore throat CARDIOVASCULAR: Denies chest pain, palpitations, or edema. RESPIRATORY: Positive for cough. Negative for dyspnea. GASTROINTESTINAL: Denies abdominal pain, nausea, vomiting, or diarrhea. GENITOURINARY: Denies dysuria or hematuria. SKIN: Denies rash or itching. MUSCULOSKELETAL: Denies back pain, joint pain, or myalgia. NEUROLOGIC: Denies headache, numbness, or weakness. PSYCHIATRIC: Denies anxiety or depression. All other systems reviewed are negative, except as documented in HPI. PMFSH Comments At the time of my signature, I reviewed and agree with the nursing past medical, surgical, social, and family history. There is no relevant family history pertinent to the patient complaint. Exam Narrative: GENERAL: This is a well-nourished, well-developed adult, in no apparent distress. They are non ill-appearing, nontoxic appearing. HEAD: normocephalic, atraumatic. EYES: Sclera clear/white. Vision is grossly intact. Conjunctiva normal bilaterally. Extraocular movements intact. EARS: External ears normal, auditory canals clear and without drainage, TMs without erythema or perforation. Hearing grossly intact. NOSE: External nose normal with no obvious nasal discharge, nasal turbinates erythematous, no rhinorrhea. THROAT: Mucous membranes moist, posterior pharynx erythematous without exudate. Uvula is midline. Postnasal drip present. NECK: Neck supple, non-tender without lymphadenopathy, masses or thyromegaly. CARDIOVASCULAR: Regular rate and rhythm without murmurs, gallops, or rubs. RESPIRATORY: Rhonchi present to the middle lobes. Breath sounds equal bilaterally. No wheezes or rales. Respiratory rate normal, respiratory effort nonlabored, no respiratory distress SKIN: warm, Dry, intact with no suspicious lesions or rash, good texture and turgor. NEURO: awake, alert, and oriented to person, place and time. There were no obvious focal neurologic abnormalities. EXTREMITIES: No joint tenderness, effusion, or edema noted. BACK: Nontender without deformity. Course Course Emergency Course: Portions of this record may have been created with voice recognition software Level of Care: Express Care Visit Vital Signs Vital signs: Vital Signs Temperature 98.5 F 04/09/25 08:43 Pulse Rate 61 04/09/25 08:43 Respiratory Rate 16 04/09/25 08:43 Blood Pressure 188/81 H 04/09/25 08:43 Pulse Oximetry 97 04/09/25 08:43 Oxygen Delivery Room Air 04/09/25 08:43 Temperature 98.5 F 04/09/25 08:43 Pulse Rate 61 04/09/25 08:43 Respiratory Rate 16 04/09/25 08:43 Blood Pressure 188/81 H 04/09/25 08:43 Pulse Oximetry 97 04/09/25 08:43 Oxygen Delivery Room Air 04/09/25 08:43 MDM - URI/Sore Throat MDM Narrative Medical decision making narrative: Rapid COVID, flu, strep are negative. Throat culture pending. Chest x-ray revealed evidence of pneumonia is the right lower lobe. Will treat empirically with Augmentin and azithromycin given her age. Will also prescribe as needed albuterol inhaler for shortness of breath or wheezing. Discussed physical exam findings. Advised supportive measures and signs/symptoms to go to the ER. Pt is appropriate for outpt treatment and f/u. Differential Diagnosis Differential diagnosis: Likely viral infection, bronchitis and other (Pneumonia) Lab Data Attestation: I reviewed the patient's lab results. Labs: Lab Results 04/09/25 Range/Units 09:33 POC Influenza A Ag Negative (Negative) POC Influenza B Ag Negative (Negative) POC SARS CoV-2 Ag Negative (Negative) POC Grp A Strep Screen Negative (Negative) Discharge Plan Discharge Clinical Impression: Pneumonia Qualifiers: Pneumonia type: due to unspecified organism Laterality: right Lung location: lower lobe of lung Qualified Code(s): J18.9 - Pneumonia, unspecified organism Patient Disposition: Home Condition: Stable Instructions: Antibiotic Form, Pneumonia (ED) Additional Instructions: Your rapid COVID a, flu, strep are negative. Throat culture will be sent off you will be contacted if it is positive for strep. Your chest x-ray today showed evidence of pneumonia. Please take the antibiotics as directed. It is recommended not to suppress the cough. You may take Mucinex as needed to thin out your mucus. Use albuterol inhaler as needed for shortness of breath or wheezing. Drink plenty of fluids and rest. Follow-up with Primary care provider in 3-5 days. You may take Tylenol or ibuprofen as needed for fevers or pain. If your symptoms worsen, he developed chest pain, difficulty breathing, weakness, or any other concerns please go to the ER immediately. Patient Language: [place] Prescriptions: New albuterol sulfate [Ventolin HFA] 90 mcg/actuation HFA aerosol inhaler 2 puff inhalation QID PRN (Reason: shortness of breath or wheezing) Qty: 8.5 0RF amoxicillin-pot clavulanate 875-125 mg tablet 1 tablet PO Q12H 5 Days Qty: 10 0RF azithromycin 250 mg tablet See Rx Instructions .ROUTE .COMPLEX Qty: 6 0RF Rx Instructions: For 250 mg dose pack: take 500 mg today (day 1), then 250 mg for 4 days (days 2-5) No Action atorvastatin 10 mg tablet levothyroxine 75 mcg tablet pantoprazole 40 mg tablet,delayed release (DR/EC) PO estradiol 0.01 % (0.1 mg/gram) cream VAGINAL metformin 500 mg tablet extended release 24 hr PO Follow-up/Referrals: Rogers,Los [Other] Time of Disposition: 10:13
[2025-04-09 09:35] LABS: EDCOVIDSCREEN Negative (Negative); EDINFLUASCREEN Negative (Negative); EDINFLUBSCREEN Negative (Negative); EDSTREPNEGPOS1 Negative (Negative)
== END 2025-04-09 10:20 | disposition home or self-care (01) ==
DX: J18.9 Pneumonia, unspecified organism (principal); Z20.822 Contact with and (suspected) exposure to COVID-19; I10 Essential (primary) hypertension; E03.9 Hypothyroidism, unspecified
CPT/HCPCS: 71046; 87081; 87426; 87804; 87880; 99213; G0463

== ENCOUNTER 2025-08-19 08:41 | Emergency (ER) | payer MEDICARE, SELFPAY ==
--- OUTSIDE RECORDS SUMMARY | 2024-09-22 07:30 | XMS_ITS ---
Author Organization [employer] imagine [facility] Address [address] [facility] [address] [place] [address] Care Team Providers Care Sound Cutter Name Role Phone Los Mccloud Primary Care Provider Unava ilNorberto Borrego Unavailable [phone] REASON FOR VISIT RUQP, Acid reflx 5ft2 173 Encounters Encounter Location Date Provider Diagnosis [facility] [address] [place] [address] 09/22/2024 Norberto Gomez Plan Of Treatment No Information Progress Notes * DMITRYNELSONMckenzie ADOB:1960 (64 yo F)Acc No.[id number]:09/22/2024 Patient: Mckenzie EL Provider: Bhavin Gomez M.D. :1960 A ge:63 Y S ex:Female Date:09/22/2024 Address:[address] [place] [address] [address] [facility] Pcp:Los Mccloud Subjective: * Chief Complaints: * 1 . RUQP, Acid reflx 5ft2 173. * Medical History: Objective: * Vitals: Assessment: Plan: * Treatment: * Images: * Electronic signature of Erlinda Gomez MD on 08/19/2025 at 08:50 AM CDT Sign off status: Pending * Provider: Bhavin Gomez M.D. Date: Generated for Printi ng/Farica/eTransmitting on: 0 08/19/2025 08:50 AM CDT
--- NOTE | 2025-08-19 08:46 | ED_ITS ---
HPI - Female Genitourinary General Chief complaint: Urogenital-Female Stated complaint: poss UTI Time Seen by Provider: 08/19/25 08:54 Source: patient, RN notes reviewed and old records reviewed Mode of arrival: ambulatory Limitations: no limitations History of Present Illness HPI Narrative: 64 year old female who presents to [facility] care with complaints of feeling last p.m. like she was getting a urinary tract infection with awakening this morning with bladder pressure and burning with urination with urgency and frequency, denies any flank pain, nausea or vomiting or diarrhea. Patient reports that she has not had any known fevers chills or sweats. She states that she has had UTI's in the past with last one about 6 months ago. Patient reports that she took some Advil for her suprapubic pressure. MD elicited complaint: UTI Pertinent past history: other (past UTI) Onset (ago): day(s) (yesterday evening) Location of symptoms: suprapubic (pressure) and urethra Severity: moderate Severity scale (1-10): 5 Vaginal discharge: none Treatment prior to arrival: other (Advil) Related Data Home Medications ?Medication ?Instructions ?Recorded ?Confirmed ?Last Taken ?Type atorvastatin 10 mg tablet mg 04/09/25 Unknown History levothyroxine 75 mcg tablet mcg 04/09/25 Unknown Hist ory metformin 500 mg tablet,extended mg PO 04/09/25 Unkno wn History release 24 hr pantoprazole 40 mg tablet,delayed mg PO 04/09/25 Unkn own History release latanoprost 0.005 % eye drops drp 08/19/25 Unknown Hi story timolol maleate 0.5 % eye drops drp 08/19/25 Unknown History valacyclovir 500 mg tablet mg 08/19/25 Unknown Histor y Allergies Allergy/AdvReac Type Severity Reaction Status Date / Time No Known Allergies Allergy Verified 08/19/25 08:50 Review of Systems Review of Systems: CONSTITUTIONAL: Denies fever, chills, or sweats. CARDIOVASCULAR: Denies chest pain, palpitations, or edema. RESPIRATORY: Denies cough or dyspnea. GASTROINTESTINAL: Reports suprapubic abdominal pain,no nausea, vomiting, or diarrhea. GENITOURINARY: Reports dysuria, frequency, urgency. Denies flank pain or visible hematuria. SKIN: Denies rash or itching. MUSCULOSKELETAL: Denies back pain or myalgia. Denies CVA tenderness NEUROLOGIC: Denies headache All systems reviewed & are unremarkable except as noted in HPI and below PMFSH Past Medical History Medical History (Updated 08/19/25 @ 09:09 by Brigitte Wilder NP) Pre-diabetes Elevated cholesterol Hypothyroidism GERD (gastroesophageal reflux disease) Surgical History Surgical History (Updated 08/19/25 @ 09:17 by Brigitte Wilder NP) H/O: section History of carpal tunnel surgery Social History Social History (Updated 08/19/25 @ 09:18 by Brigitte Wilder NP) Smoking status: Never smoker Alcohol intake: former Substance use type: does not use Living arrangements: with family Gender identity (if verbalized by the patient): Female Comments At time of signature, agree with nursing past medical, surgical, social and family history. There is no relevant family history pertinent to the presenting complaint Exam Narrative: GENERAL: Well-appearing, well-nourished, and in no acute distress. HEAD: Normocephalic, atraumatic. NECK: Supple. no lymphadenopathy CHEST: Clear to auscultation. No respiratory distress. SAO2 97% on room air HEART: Regular rate and rhythm. No murmur heard. Normal peripheral pulses. ABDOMEN: Soft, suprapubic pressure,nontender to palpation, nondistended, normal active bowel sounds. No CVA tenderness EXTREMITIES: Normal range of motion. No edema. SKIN: Warm, dry, no rash. NEURO: No focal deficits. Alert and oriented x3. Course Course Emergency Course: Patient is aware of diagnosis, understands and agrees to treatment plan.? Anticipatory guidance given.? Patient agrees to follow-up as directed and is aware of reasons to seek care at the emergency department. Portions of this record may have been created with voice recognition software Level of Care: Express Care Visit MDM - Female Genitourinary MDM Narrative Medical decision making narrative: Exam findings and UA show no acute concerns or changes; patient is non-toxic appearing and is in no distress.? Patient is appropriate for outpatient treatment and follow-up. Differential Diagnosis Differential diagnosis: Likely urinary tract infection, cystitis and other (dysuria) Medical Records Attestation: I reviewed the patient's medical records. Lab Data Attestation: I reviewed the patient's lab results. Lab results narrative: urine dip: Light yellow cloudy glucose negative, bilirubin negative, ketone negative, specific gravity 1.010, blood 2+, pH 6.0, protein negative, urobilinogen 0.2, nitrate negative, leukocyte 2+ Critical Care Time Critical Care Time Critical Care Time: No Discharge Plan Discharge Clinical Impression: Urinary tract infection Qualifiers: Urinary tract infection type: site unspecified Hematuria presence: with hematuria Qualified Code(s): N39.0 - Urinary tract infection, site not specified Patient Disposition: Home Condition: Stable Instructions: Antibiotic Form, Urinary Tract Infection in Women (ED) Additional Instructions: Increase fluids especially cranberry juice and water Avoid caffeine and carbonated beverages Antibiotic as directed take all doses of medication as prescribed Tylenol/ibuprofen for pain or fever per bottle instruction Follow-up with her primary care provider if further problems or concerns Recheck if you have fever over 101, nausea and vomiting. If your symptoms persist, change or worsen significantly before you can contact your personal physician then please, without delay, go to the emergency department for further evaluation. Follow-up with PCP in 7-10 days or sooner if needed Follow up with PCP soon in regards to your blood pressure which is elevated above threshold for referral. Blood pressure above 120/80 may indicate pre- hypertension. 153/92 Patient Language: Latvian Prescriptions: New ciprofloxacin HCl 500 mg tablet 500 mg PO Q12H Qty: 14 0RF No Action atorvastatin 10 mg tablet levothyroxine 75 mcg tablet pantoprazole 40 mg tablet,delayed release (DR/EC) PO metformin 500 mg tablet extended release 24 hr PO latanoprost 0.005 % drops valacyclovir 500 mg tablet timolol maleate 0.5 % drops Follow-up/Referrals: PHYSICIAN NOT ON STAFF,NONSTAFF [Primary Care Provider] Time of Disposition: 09:10 Quality [place] Coma Scale Eyes: Open Verbal: Oriented and Alert Motor: Follows Commands [place] Coma Total Score: 15
[2025-08-19 08:50] VITALS: BP 153/92; PULSE 68; RESP 20; TEMP 36.5; O2SAT 97
--- OUTSIDE RECORDS SUMMARY | 2025-08-19 08:51 | XMS_ITS | Patient Health Record ---
Author Organization [employer] Address [address] [facility] [address] [place] [address] Care Team Providers Care Ict Trainer Name Role Phone Los Mccloud Primary Care Provider Nora nik GoodwinorrowNorberto Unavailable [phone] Allergies No Known Allergies Results Component Value Reference Range Notes IRENE/SHIG/CAMPY, CULTURE AND SHIGA TOXIN, EIA W/RFL TO E.COLI 0157 CULT Reviewed date:08/01/2025 11:33:43 PM Interpretation: Performing Lab:[facility] [address] Administration Mitchell Flores [address] Notes/Report: NON-FASTING; NON-FASTING; NON-FASTING MULTIPLE TESTING PRIORITIES; ROUTINE TESTING TO FOLLOW. CAMPYLOBACTER SPP. AG,EIA SEE NOTE CAMPYLOBACTER SPP. AG,EIA Micro Number: [id number] Test Status: Final Specimen Source: Stool Specimen Quality: Adequate Campy Ag Result: Not Detected Reference Range: Not Detected SHIGA TOXINS, EIA W/RFL TO E.COLI O157 CULTURE SEE NOTE SHIGA TOXINS, EIA W/RFL TO E.COLI O157 CULTURE Micro Number: [id number] Test Status: Final Specimen Source: Stool Specimen Quality: Adequate Shiga Toxin: Not Detected Reference Range: Not Detected SALMONELLA AND SHIGELLA, CULTURE SEE NOTE SALMONELLA AND SHIGELLA, CULTURE Micro Number: [id number] Test Status: Final Specimen Source: Stool Specimen Quality: Adequate Result: No Salmonella or Shigella isolated OVA AND PARASITES WITH GIARD IA ANTIGEN Reviewed date:08/01/2025 11:33:43 PM Interpretation: Performing Lab:[facility] [address] Administration Mitchell Flores [address] Notes/Report: NON-FASTING; NON-FASTING; NON-FASTING MULTIPLE TESTING PRIORITIES; ROUTINE TESTING TO FOLLOW. GIARDIA AG, EIA, STOOL SEE NOTE GIARDIA AG, EIA, STOOL Micro Number: [id number] Test Status: Final Specimen Source: Stool Specimen Quality: Adequate Giardia Result 1: Not Detected Reference Range: Not Detected NOTE: Due to intermittent shedding, one negative sample does not necessarily rule out the presence of a parasitic infection. OVA AND PARASITES, CONC AND PERM SMEAR SEE NOTE OVA AND PARASITES, CONC AND PERM SMEAR Micro Number: [id number] Test Status: Final Specimen Source: Stool Specimen Quality: Adequate CONCENTRATION 1: No ova or parasites seen TRICHROME 1: No ova or parasites seen Routine Ova and Parasite exam may not detect some parasites that occasionally cause diarrheal illness. Cryptosporidium Antigen and/or Cyclospora and Isospora Exam may be ordered to detect these parasites. One negative sample does not necessarily rule out the presence of a parasitic infection. For additional information, please refer to https://education.Weeve/faq/CUM188 (This link is being provided for informational/ educational purposes only.) BASIC METABOLIC PANEL Reviewed date:06/25/2025 06:52:40 AM Interpretation: Performing Lab:[facility]-[id number] Juan [id number] Kevin Sweeney MD Notes/Report: NON-FASTING; NON-FASTING GLUCOSE 96 65-99 mg/dL Fasting reference interval UREA NITROGEN (BUN) 9 7-25 mg/dL CREATININE 0.77 0.50-1.05 mg/dL EGFR 85 > OR = 60 mL/min/1.73m2 BUN/CREATININE RATIO SEE NOTE: 6-22 (calc) Not Reported: BUN and Creatinine are within reference range. SODIUM 143 135-146 mmol/L POTASSIUM 4.0 3.5-5.3 mmol/L CHLORIDE 102 98-110 mmol/L CARBON DIOXIDE 32 20-32 mmol/L CALCIUM 9.8 8.6-10.4 mg/dL LACTOFERRIN, QL, STOOL Reviewed date:07/02/2025 04:10:13 AM Interpretation: Performing Lab:[facility] Ronald Flores [facility] Kevin Sweeney Notes/Report: NON-FASTING LACTOFERRIN, QL, STOOL SEE NOTE LACTOFERRIN, QL, STOOL Micro Number: [id number] Test Status: Final Specimen Source: Stool Specimen Quality: Adequate Lactoferrin: Negative Lactoferrin in the stool is a marker for fecal leukocytes and is a non-specific indicator of intestinal inflammation that may be detected in patients with acute infectious colitis or inflammatory bowel disease. The diagnosis of an acute infectious process or active IBD cannot be established solely on the basis of a positive result. This test may not be appropriate for immunocompromised persons. In addition, this test is not FDA cleared for patients with a history of HIV and/or Hepatitis B and C, patients with a history of infectious diarrhea (within 6 months), and patients having had a colostomy and/or ileostomy within 1 month. CRP Reviewed date:06/28/2025 09:33:21 AM Interpretation: Performing Lab:[facility]-[id number] Vanesa [place], [id number] Kevin Sweeney MD Notes/Report: NON-FASTING; NON-FASTING C-REACTIVE PROTEIN 7.6 <8.0 mg/L Reason For Referral Referral Organization [facility] Referring Provider First Name Norberto Ref[facility] Referring Provider Speciality [facility] Referred Organization [facility] Referred Provider Norberto Gomez Referred Address [address] ,[facility] [address],[place], [place],[address], Referred Provider Specialty Gastroentero logy Referral Priority Routine Medications Medication SIG (Take, Route, Frequency, Duration) Notes Start Date End Date Status oxyBUTYnin Active Levothyroxine Sodium Active Probiotic Active Pantoprazole Sodium 40 MG TAKE 1 TABLET EVERY DAY for 90 Active Valchlor Active Atorvastatin Calcium Active OTC/Vitamins Biotin, MVI Activ e Social History Tobacco Use: Social History Observation Description Date Details (start date - stop date) Never Smoker NA - NA Tobacco Control (Standard) Question Answer Notes Tobacco use: Nonsmoker Problems Problem Type SNOMED Code ICD Code Onset Dates Problem Status W/U Status Risk Notes Problem 850636648 History of colon polyps (Z86.010) Active confirmed 2 polyps DDB 2018 Problem 976123904 Acid reflux (K21.9) Active confirmed Vital Signs Height 62 in 06/24/2025 Weight 173 lbs 06/24/2025 BMI 31.64 kg/m2 06/24/2025 Encounters Encounter [facility] Date [facility] [address] [facility] [place] [address] 06/24/2025 [facility] Change in bowel habi ts R19.4 and Infectious gastroenteritis and colitis, unspecified A09 [facility], [address] [place] [address] 06/21/2025 [facility], [address] [place] [address] 06/21/2025 [facility], [facility] [address] [facility] [place] [address] 06/28/2025 [facility], [address] [place] [address] 06/28/2025 [facility], [facility] [address] [facility] [place] [address] 06/29/2025 [facility], [facility] [address] [facility] [place] [address] 07/01/2025 [facility] Assessments Encounter Date Diagnosis (ICD Code) Assessment Notes Treatment Notes Treatment Clinical Notes Section Notes 06/24/2025 Infectious gastroenteritis and colitis, unspecified (ICD-10 - A09) 06/24/2025 Change in bowel habits (ICD-10 - R19.4) Differential diagnosis would include infectious causes, assessment acute onset. This could be due to the viral, or bacterial. Alternative diagnoses if it is mesenteric ischemia or nonocclusive ischemic colitis (less likely) given her CT scan findings and her presentation. I would recommend starting Pepto-Bismol 2 tablets p.o. 4 times a day. I will also check a CBC and a C-reactive protein along with a BMP. Will obtain stool studies for enteric pathogens, apparently this was not done in the ER. I think this will be a self-limited enterocolitis, and I advised her to push the liquid intake to make sure she is well-hydrated and follow a low residue diet. If her symptoms persist then I would consider a colonoscopy but at this point I would hold off on that. Plan Of Treatment Pending Test Test Name Order Date Upper Endoscopy 08/10/2024 GIARDIA AG, EIA, STOOL 06/24/2025 Insurance Providers Payer Name Payer Address Payer Phone Subscriber Number Group Number Insured Name Patient Relationship to Insured Coverage Start Date Coverage End Date [employer] PPO [address] [place] [address] [id number] Mckenzie Mcneal Self - patient is the insured Medical (General) History Medical History History ICD Code Colon Polyps GERD Thyroid Disease Surgical History Surgery Date(Month/Year) Colonoscopy 01/2024 Upper Endoscopy (Outside Provider) 2019 Tonsillectomy Uterine Ablation Cataract Surgery C Section x2
--- OUTSIDE RECORDS SUMMARY | 2025-08-19 08:51 | XMS_ITS | Clinical Summary ---
Author Organization [facility] al Address [address] [place] [address] Care Team Providers Care Inventory Checker Name Role Phone Los Mccloud MD Primary Care Prov ider Allergies No known active allergies Active Problems Problem Noted Date Diagnosed Date Tension headache 06/25/2025 Colitis 06/25/2025 Diarrhea 06/25/2025 Encounters Date Type Department Care Team Description 06/29/2025 Results Follow-Up [facility] Emergency Department [address] [place] [address] Fox Woodward, RN Stool culture Stool Rectum 06/28/2025 Telephone [facility] Emergency Department [address] [place] [address] Fox Woodward RN 06/25/2025 7:31 AM CDT - 06/25/2025 10:48 AM CDT Emergency [facility] Emergency Department [address] [place] [address] Emma Frank MD Colitis (Primary Dx); Tension headache; Diarrhea, unspecified type Discharge Disposition: Discharge to home or self care from Last 3 Months Social History Tobacco Use Types Packs/Day Years Used Date Smoking Tobacco: Never Assessed Personal Safety Answer Date Recorded Have you ever been in or are you currently in a harmful physical or emotional relationship or is someone making you feel afraid or unsafe? Denies 06/25/2025 Comments Unknown Sex and Gender Information Value Date Recorded Sex Assigned at Not on file Legal Sex Female 11:00 AM [employer] Gender Identity Not on file Sexual Orientation Not on file Obstetrics History Last Filed Vital Signs Vital Sign Reading Time Taken Comments Blood Pressure 194/133 06/25/2025 6:19 AM CDT Pulse 71 06/25/2025 6:19 AM CDT Temperature 36.9 C (98.5 F) 06/25/2025 6:19 AM CDT Respiratory Rate 18 06/25/2025 6:19 AM CDT Oxygen Saturation 95% 06/25/2025 6:19 AM CDT Inhaled Oxygen Concentration - - Weight 81.6 kg (180 lb) 06/25/2025 6:19 AM CDT Height - - Body Mass Index - - Plan of Treatment Health Maintenance Due Date Last Done Comments Colon Cancer Screening-Colonoscopy 1960 Depression Screening 1958 Fall Risk Assessment 1960 Hepatitis C Screening 1960 Hepatitis B Screening 1976 DTaP/Tdap/Td Vaccine (1 - Tdap) 08/07/2008 8 Pneumococcal vaccine 65+ (1 of 1 - PCV) 2008 Zoster Vaccine (1 of 2) 2008 Well Visit 65+ 2023 Covid-19 Vaccine (4 - 2024-2 6 season) 2025 12/18/2021, 03/30/2021, 03/08/2021 Influenza Vaccine (#1) 2025 Breast Cancer Screening-Mammogram 11/11/2025 11/11/2024, 11/11/2024, 10/07/2023, Additional history exists Osteoporosis Screening-Bone Density Scan 04/07/2026 04/07/2024, 04/07/2024, 11/20/2017 Procedures Procedure Name Priority Date/Time Associated Diagnosis Comments NOROVIRUS PCR STAT 06/25/2025 9:19 AM CDT C. DIFFICILE TESTING STAT 06/25/2025 9:19 AM CDT STOOL CULTURE STAT 06/25/2025 9:19 AM CDT EGFR STAT 06/25/2025 7:52 AM CDT MAGNESIUM STAT 06/25/2025 7:52 AM CDT DIFFERENTIAL AUTO STAT 06/25/2025 7:5 2 AM CDT LIPASE STAT 06/25/2025 7:52 AM CDT COMPREHENSIVE METABOLIC PANEL STAT 06/25/2025 7:52 AM CDT CBC WITH AUTO DIFFERENTIAL STAT 06/25/2025 7:52 AM CDT URINALYSIS, MICROSCOPIC ONLY STAT 06/25/2025 6:28 AM CDT URINALYSIS AND REFLEX TO MICROSCOPIC STAT 06/25/2025 6:28 AM CDT from Last 3 Months Results * C. difficile testing Stool (06/25/2025 9:19 AM CDT) [facility] Result Negative Negative Toxin Result Negative Negative [facility] C. diff result Negative, free toxin Negative, free toxin [facility] C. diff interp Negative for toxigenic Clostridioides (Clostridium) difficile. Analysis was performed using a glutamate dehydrogenase antigen detection assay combined with a C. difficile toxin detection assay. [facility] Stool 06/25/2025 9:19 AM CDT 06/25/2025 11:04 AM CDT us Emma Frank MD LAB MICROBIOLOGY - [facility] ORDERABLES Final Result [facility] Department [place] [address] * Norovirus PCR Stool (06/25/2025 9:19 AM CDT) [facility] Norovirus GI RNA Not Detected Not Detected [facility] Norovirus GII RNA Not Detected Not Detected [facility] Comment: Interpretive data: Testing performed at the [facility] using the [employer] Xpert Norovirus Assay. This assay uses nucleic acid amplification to detect RNA from norovirus. This test is cleared by the [place] Food and Drug Administration for unformed stool specimens. The performance characteristics for unformed stool specimens have been verified by the performing laboratory. The performance characteristics of rectal swab specimens have also been validated and verified by the performing laboratory. Positive Xpert Norovirus results do not rule out other causes of infectious diarrhea. Assay interference may be observed in the presence of Barium sulfate and Benzalkonium chloride. Mutations or polymorphisms in primer or probe binding regions may affect detection of new or unknown norovirus variants resulting in a false negative result. Results from the Xpert Norovirus Assay should be interpreted in conjunction with other laboratory and clinical data available to the clinician. Current interpretive data was last revised on 2024. Stool 06/25/2025 9:19 AM CDT 06/25/2025 11:20 AM CDT Emma Frank MD LAB MICROBIOLOGY - [facility] ORDERABLES Final Result [facility] [place] [address] [facility] * (ABNORMAL) Stool culture Stool Rectum (06/25/2025 9:19 AM CDT) Direct Specimen Exam Shiga Toxin Testing: Antigen detection assay for Shiga-toxin NEGATIVE for Shiga Toxin 1 and Shiga Toxin 2. Report Final Report: Yeast No normal enteric finn isolated. (.) [facility] Organism YEAST [facility] Stool (Rectum) 06/25/2025 9: 19 AM CDT 06/25/2025 11:[address] [facility] - 06/29/2025 10:41 AM CDT Testing performed by [facility] Microbiology Laboratory ([phone]). Routine stool cultures include procedures to detect Salmonella, Shigella, Edwardsiella, Aeromonas, Pleisiomonas, Campylobacter, Yersinia, E. coli O157, and Shiga-like toxins. Vibrio is cultured only upon special request. If Vibrio is suspected, please call the laboratory at [phone]. Interpretive data was last updated April 01, 2017. us Emma Frank MD LAB MICROBIOLOGY - [facility] ORDERABLES Final Result Performing Organization Address City/[facility]/ZIP Co de Phone Number [facility] [place] [address] * eGFR (06/25/2025 7:52 AM CDT) Pathologist [facility] eGFR >90 >=60 mL/min/1. 73 m2 Comment: Interpretive Data Reference Interval Normal >/= 90 mL/min/1.73m2 Mildly decreased* 60 - 89 mL/min/1.73m2 Mildly to moderately decreased 45 - 59 mL/min/1.73m2 Moderately to severely decreased 30 - 44 mL/min/1.73m2 Severely decreased 15 - 29 mL/min/1.73m2 Kidney Failure < 15 mL/min/1.73m2 *Relative to young adult level Estimated glomerular filtration rate is determined by the 2020 CKD-EPI equation recommended by the National Kidney Foundation (A Unifying Approach to GFR Estimation: Recommendations of the NKF-ASK Task Force on Reassessing the Inclusion of Race in Diagnosing Kidney Disease, JASN 2020). The CKD-EPI equation should not be used for patients with unstable renal function and has not been validated in children and those over 70. Current interpretive data was last reviewed 2021. Blood 06/25/2025 7:52 AM CDT 06/25/2025 8:02 AM CDT us Shantel Jalloh MD LAB BLOOD ORDERABLES Fin al Result Performing Organization Address City/[facility]/ZIP Co de Phone Number [facility] Department [place] [address] * (ABNORMAL) Differential, auto (06/25/2025 7:52 AM CDT) Pathologist [facility] Neutrophil abs 3.23 1.50 - 6.50 K/cumm Imm gran abs 0.14(H) 0.00 - 0.10 K/cumm [facility] Lymphocyte abs 2.24 0.80 - 3.30 K/cumm [facility] Monocyte abs 0.32 0.20 - 0.80 K/cumm [facility] Eosinophil abs 0.12 0.00 - 0.50 K/cumm [facility] Basophil abs 0.05 0.00 - 0.10 K/cumm [facility] Neutrophil pct 53.0 % [facility] Comment: Interpretive Data Percent cell count reference ranges are not reported, since discordance with absolute values may lead to misinterpretation of CBC data. Current Interpretive Data was last revised on 2018. Imm gran pct 2.3 % [facility] Comment: Interpretive Data Percent cell count reference ranges are not reported, since discordance with absolute values may lead to misinterpretation of CBC data. Current Interpretive Data was last revised on 2018. Lymphocyte pct 36.7 % [facility] Comment: Interpretive Data Percent cell count reference ranges are not reported, since discordance with absolute values may lead to misinterpretation of CBC data. Current Interpretive Data was last revised on 2018. Monocyte pct 5.2 % [facility] Comment: Interpretive Data Percent cell count reference ranges are not reported, since discordance with absolute values may lead to misinterpretation of CBC data. Current Interpretive Data was last revised on 2018. Eosinophil pct 2.0 % [facility] Comment: Interpretive Data Percent cell count reference ranges are not reported, since discordance with absolute values may lead to misinterpretation of CBC data. Current Interpretive Data was last revised on 2018. Basophil pct 0.8 % [facility] Comment: Interpretive Data Percent cell count reference ranges are not reported, since discordance with absolute values may lead to misinterpretation of CBC data. Current Interpretive Data was last revised on 2018. Blood 06/25/2025 7:52 AM CDT 06/25/2025 8:01 AM CDT us Shantel Jalloh MD LAB BLOOD ORDERABLES Fin al Result [facility] [place] [address] * (ABNORMAL) CBC with auto differential (06/25/2025 7:52 AM CDT) Pathologist [facility] WBC 6.10 3.80 - 9.90 K/cumm Hgb 15.4 11.9 - 15.5 g/dL [facility] Hct 45.0 35.6 - 45.5 % [facility] Plt 246 150 - 400 K/cumm [facility] MPV 10.5 9.1 - 12.3 fL [facility] RBC 4.99 3.90 - 5.20 M/cumm [facility] MCV 90.2 81.3 - 96.4 fL [facility] MCH 30.9 27.1 - 33.3 pg [facility] MCHC 34.2 32.3 - 35.7 g/dL [facility] RDW CV 13.5 11.1 - 14.9 % [facility] RDW SD 44.1 35.7 - 48.1 fL [facility] NRBC abs 0.02(H) 0.00 - 0.01 K/cumm [facility] Blood Venous blood specimen / Unknown 06/25/2025 7:52 AM CDT 06/25/2025 8:01 AM CDT Emma Frank MD LAB BLOOD ORDERABLES Fi nal Result Performing Organization Address City/[facility] Co de Phone Number [facility] [place] [address] * Magnesium (06/25/2025 7:52 AM CDT) [facility] Magnesium 2.4 1.4 - 2.5 mg/dL Blood 06/25/2025 7:52 AM CDT 06/25/2025 8:02 AM CDT Emma Frank MD LAB BLOOD ORDERABLES Fi nal Result [facility] [address] * Lipase (06/25/2025 7:52 AM CDT) Lipase 26 10 - 99 Units/L Blood Venous blood specimen / Unknown 06/25/2025 7:52 AM CDT 06/25/2025 8:02 AM CDT Emma Frank MD LAB BLOOD ORDERABLES Fi nal Result [facility] [place] [address] * (ABNORMAL) Comprehensive metabolic panel (06/25/2025 7:52 AM CDT) Pathologist [facility] Sodium 142 135 - 145 mmol/L Potassium, pl 4.9 3.3 - 4.9 mmol/L [facility] Comment:Hemolyzed; Potassium value may be falsely elevated by as much as 0.6-1.0 mmol/L. Suggest redraw and reanalysis. Chloride 106 97 - 110 mmol/L [facility] CO2 25 22 - 32 mmol/L [facility] Anion gap 11 2 - 15 mmol/L [facility] BUN 11 6 - 25 mg/dL [facility] Creatinine 0.70 0.60 - 1.10 mg/dL [facility] Glucose 133 70 - 199 mg/dL [facility] Comment: Interpretive Data Fasting glucose >/= 126 mg/dl is diagnostic for diabetes. Fasting is defined as no caloric intake for at least 8 hours. Fasting glucose between 100 mg/dl to 125 mg/dl is diagnostic of prediabetes. In a patient with classic symptoms of hyperglycemia or hyperglycemic crisis, a random glucose >/= 200 mg/dl is diagnostic for diabetes. In the absence of unequivocal hyperglycemia, results should be confirmed by repeat testing. The classification and Diagnosis of Diabetes Diabetes Care 202; 46: S19-S40. Current interpretive data was last revised 2022. Calcium 9.5 8.5 - 10.3 mg/dL [facility] Bilirubin, total 1.0 0.1 - 1.2 mg/dL [facility] Protein, pl 8.0 6.5 - 8.5 g/dL [facility] Albumin 4.1 3.5 - 5.0 g/dL [facility] Alk phos 86 40 - 130 Units/L [facility] ALT 59(H) 7 - 45 Units/L [facility] AST 84(H) 10 - 45 Units/L [facility] Comment:Hemolyzed; result ma y be falsely elevated Blood 06/25/2025 7:52 AM CDT 06/25/2025 8:02 AM CDT us Emma Frank MD LAB BLOOD ORDERABLES Fi nal Result [facility] [place] [address] * (ABNORMAL) Urinalysis reflex to microscopic (06/25/2025 6:28 AM CDT) Color, ur Straw Yellow Clarity, ur Cloudy(A) Clear [facility] Specific gravity, ur 1.005 1.003 - 1.030 [facility] pH, urine 6.5 [facility] Comment: Interpretive Data U rine pH is affected by diet, medications, systemic acid-base disturbances, and renal tubular function. pH may affect urinary stone formation. For example, urine pH below 6.0 may help reduce the tendency for calcium phosphate stones and pH greater than 6.0 may reduce the tendency for uric acid stone formation. Source: [facility] Directr Current Interpretive Data was last revised on 2017 Protein, ur ql Negative Negative [facility] Glucose, ur ql Negative Negative [facility] Ketones, ur Negative Negative [facility] Bilirubin, ur Negative Negative [facility] Blood, ur Negative Negative [facility] Urobilinogen, ur <2.0 <2.0 mg/dL [facility] Nitrite, ur Negative Negative [facility] Leukocyte esterase, ur 1+(A) Negative [facility] UA reflex comment Reflex to microscopic UA will be performed. [facility] Urine 06/25/2025 6:28 AM CDT 06/25/2025 6:40 AM CDT Emma Frank MD LAB URINE ORDERABLES Fi nal Result Performing Organization Address [facility] Co de Phone Number [facility] [place] [address] * (ABNORMAL) Urinalysis, microscopic only (06/25/2025 6:28 AM CDT) WBC, ur 0-5 0 - 5 /HPF RBC, ur 0-2 0 - 2 /HPF [facility] Epithelial cells, squamous, ur 6-10(A) 0 - 5 /HPF [facility] Comment:Suggestive of contam ination. Consider recollection by clean catch. Epithelial cells, renal, ur 1-5(A) 0 - 0 /HPF [facility] Epithelial cells, transitional, ur 1-5 0 - 0 /HPF [facility] Bacteria, ur Trace(A) [facility] Urine 06/25/2025 6:28 AM CDT 06/25/2025 6:40 AM CDT Emma Frank MD LAB URINE ORDERABLES Fi nal Result Performing Organization Address [facility] de Phone Number [facility] [place] [address] from Last 3 Months Insurance [facility] Care Teams Inventory Checker Relationship Specialty Start Date End Date Los Mccloud MD [phone] [phone] PCP - General Internal Medicine 06/20/25
--- OUTSIDE RECORDS SUMMARY | 2025-08-19 08:51 | XMS_ITS | Clinical Summary ---
Author Organization [facility] Address [address] [place] [address] Phone Care Team Providers Care In [employer] Coater Name Role Phone Los Mccloud MD Primary Care Provider Allergies No known active allergies Medications famotidine (PEPCID) 20 MG TabletIndicati ons:Gastroesop hageal Reflux Disease Take 1 Tablet by mouth 2 times daily as needed for Heartburn. Indications: Gastroesophageal Reflux Disease 30 Tablet 06/20/20 25 Active metroNIDAZOLE (FLAGYL) 500 MG Tablet Take 1 Tablet by mouth 3 times daily. 30 Tablet 06/21/20 25 Active dicyclomine (BENTYL) 20 MG Tablet Take 1 Tablet by mouth every 6 hours as needed for Other (Abdominal cramps). 30 Tablet 06/21/20 25 Active Encounters Date Type Department Care Team Description 06/21/2025 6:51 PM CDT - 06/21/2025 10:33 PM CDT Emergency [facility] [address] [place] [address] Hector Lomeli MD Colitis Discharge Disposition: Discharged to home or Selfcare 06/21/2025 Travel 06/21/2025 Telephone [facility] [address] [place] [address] Amara Daley APRN, SLUDGE FILTRATION OPERATOR 06/20/2025 11:12 AM CDT - 06/20/2025 1:52 PM CDT Emergency [facility] Emergency [address] [facility] [place] [address] Neal Galindo PAC GERD (gastroesophageal reflux disease) Discharge Disposition: Discharged to home or Selfcare 06/20/2025 Travel from Last 3 Months Social History Tobacco [...] Sign Reading Time Taken Comments Blood Pressure 168/95 06/21/2025 10:15 PM CDT Pulse 70 06/21/2025 10:15 PM CDT Temperature 36.6 C (97.8 F) 06/21/2025 6:55 PM CDT Respiratory Rate 16 06/21/2025 10:15 PM CDT Oxygen Saturation 93% 06/21/2025 10:15 PM CDT Inhaled Oxygen Concentration - - Weight 79.9 kg (176 lb 2.4 oz) 06/21/2025 6:55 P M CDT Height 157.5 cm (5' 2) 06/21/2025 6:55 PM CDT Body Mass Index 32.22 06/21/2025 6:55 PM CDT Plan of Treatment Health Maintenance Due Date Last Done Comments Hepatitis C Virus (HCV) Screening 1960 TdaP Immunization 1958 Cologuard 2003 Colonoscopy 2003 Colorectal Cancer Screening 2003 Immunochemical Fecal Occult Blood 2003 Pneumococcal Immunization (50+ years) (1 of 1 - PCV) 2008 Zoster Immunization (1 of 2) 2008 Influenza Immunization (#1) 2025 SARS-COV-2 Immunization ( season) 2025 12/18/2021, 03/30/2021, 03/08/2021 Mammogram 11/11/2025 11/11/2024, 10/25, 10/07/2023, Additional history exists DEXA Bone Density 04/07/2026 04/07/2024, 11/20/2017 Respiratory Syncytial Virus (RSV) Immunization (Adult) (1 [...] Procedure Name Priority Date/Time Associated Diagnosis Comments CT ABDOMEN PELVIS W/ CONTRAST Stat with Interpretation 06/21/2025 9:26 PM CDT MANUAL DIFFERENTIAL STAT 06/21/2025 7:40 PM CDT GOLD TOP TUBE STAT 06/21/2025 7:40 PM CDT BLUE TOP TUBE STAT 06/21/2025 7:40 PM CDT CBC WITH AUTO DIFFERENTIAL STAT 06/21/2025 7:40 PM CDT EXTRA TUBES STAT 06/21/2025 7:40 PM CDT LIPASE STAT 06/21/2025 7:40 PM CDT COMPLETE BLOOD COUNT (CBC) WITH DIFF STAT 06/21/2025 7:40 PM CDT CMP (COMPREHENSIVE METABOLIC PANEL) STAT 06/21/2025 7:40 PM CDT CBC WITH AUTO DIFFERENTIAL STAT 06/20/2025 11:25 AM CDT LIPASE STAT 06/20/2025 11:25 AM CDT CMP (COMPREHENSIVE METABOLIC PANEL) STAT 06/20/2025 11:25 AM CDT COMPLETE BLOOD COUNT (CBC) WITH DIFF STAT 06/20/2025 11:25 AM CDT URINALYSIS REFLEX IF INDICATED BY ABNORMAL RESULTS STAT 06/20/2025 11:14 AM CDT from Last 3 Months Results * CT ABDOMEN PELVIS W/ CONTRAST (06/21/2025 9:26 PM CDT) Anatomical Region Laterality Modality Abdomen N/A Computed Tomogra phy 06/21/2025 9:39 PM CDT Impressions 06/21/2025 9:41 PM CDT IMPRESSION: Diffuse wall thickening is seen of the colon which may suggest a colitis of uncertain etiology. No evidence of perforation or pneumatosis is seen at this time. Narrative 06/21/2025 9:41 PM CDT EXAM DESCRIPTION: CT ABDOMEN PELVIS W/ CONTRAST REASON FOR STUDY: Bilateral lower abdominal pain that radiates into both sides of her lower back with dark loose stools x today. HX: HTN, Acid reflux TECHNIQUE: CT scan of the abdomen and pelvis performed with intravenous and without oral contrast using helical scanning technique with dynamic intravenous contrast injection. Reconstructed coronal and sagittal MPR images reviewed. All images stored on PACS. Automated exposure control was used as a dose optimization technique for this examination. CONTRAST TYPE/DOSE: 100mL of IOPAMIDOL 76 % IV SOLN injected via Intravenous COMPARISON: 09/18/2022 FINDINGS: LOWER CHEST: Minor scarring and chronic changes are seen in the lung bases. LIVER: Normal size. No identified cystic or solid masses. GALLBLADDER: Unremarkable BILE DUCTS: No intrahepatic or extrahepatic ductal dilatation. SPLEEN: Normal size. No focal lesions. PANCREAS: No identified cystic or solid masses. No significant calcifications. No adjacent inflammation or peripancreatic fluid collections. Pancreatic duct not dilated. ADRENALS: Normal. KIDNEYS/URINARY TRACT: No identified significant cystic or solid masses. No visualized stones. No hydronephrosis or hydroureter. Symmetric enhancement. Urinary bladder is unremarkable. GI: Wall thickening is noted of much of the colon which may suggest a colitis of uncertain etiology. No evidence of perforation or pneumatosis is seen at this time. The appendix is not clearly seen. Small bowel appears unremarkable. No abnormality is seen of the stomach. PERITONEUM: No ascites or free air. RETROPERITONEUM: No mass or adenopathy. REPRODUCTIVE: No significant abnormality. VASCULATURE: No abdominal aortic aneurysm. MUSCULOSKELETAL: Degenerative changes are seen of the lower lumbar spine. OTHER: No other abnormality. THIS IS AN ELECTRONICALLY VERIFIED FINAL REPORT 06/21/2025 9:39 PM - Electronically signed by Ralf Mahmood M.D. KH: TIA Report ID: [id number] Reading Location: [id number] Procedure Note Ralf Mahmood MD - 06/21/2025 EXAM DESCRIPTION: CT ABDOMEN PELVIS W/ CONTRAST REASON FOR STUDY: Bilateral lower abdominal pain that radiates into both sides of her lower back with dark loose stools x today. HX: HTN, Acid reflux TECHNIQUE: CT scan of the abdomen and pelvis performed with intravenous and without oral contrast using helical scanning technique with dynamic intravenous contrast injection. Reconstructed coronal and sagittal MPR images reviewed. All images stored on PACS. Automated exposure control was used as a dose optimization technique for this examination. CONTRAST TYPE/DOSE: 100mL of IOPAMIDOL 76 % IV SOLN injected via Intravenous COMPARISON: 09/18/2022 FINDINGS: LOWER CHEST: Minor scarring and chronic changes are seen in the lung bases. LIVER: Normal size. No identified cystic or solid masses. GALLBLADDER: Unremarkable BILE DUCTS: No intrahepatic or extrahepatic ductal dilatation. SPLEEN: Normal size. No focal lesions. PANCREAS: No identified cystic or solid masses. No significant calcifications. No adjacent inflammation or peripancreatic fluid collections. Pancreatic duct not dilated. ADRENALS: Normal. KIDNEYS/URINARY TRACT: No identified significant cystic or solid masses. No visualized stones. No hydronephrosis or hydroureter. Symmetric enhancement. Urinary bladder is unremarkable. GI: Wall thickening is noted of much of the colon which may suggest a colitis of uncertain etiology. No evidence of perforation or pneumatosis is seen at this time. The appendix is not clearly seen. Small bowel appears unremarkable. No abnormality is seen of the stomach. PERITONEUM: No ascites or free air. RETROPERITONEUM: No mass or adenopathy. REPRODUCTIVE: No significant abnormality. VASCULATURE: No abdominal aortic aneurysm. MUSCULOSKELETAL: Degenerative changes are seen of the lower lumbar spine. OTHER: No other abnormality. THIS IS AN ELECTRONICALLY VERIFIED FINAL REPORT 06/21/2025 9:39 PM - Electronically signed by Ralf Mahmood M.D. KH: TIA Report ID: [id number] Reading Location: [id number] IMPRESSION: Diffuse wall thickening is seen of the colon which may suggest a colitis of uncertain etiology. No evidence of perforation or pneumatosis is seen at this time. Hector Lomeli MD IMG CT ORDERABLES Final R esult * Gold Top Tube (06/21/2025 7:40 PM CDT) Blood No Phlebotomy Charged / Unknown 06/21/2025 7:40 PM CDT 06/21/2025 7:58 PM CDT Hector Lomeli MD CHEMISTRY ORDERABLES Delisa l Result Performing Organization Address City/[facility]/ZIP Co de Phone Number [facility] [address] [place] [address] * Blue Top Tube (06/21/2025 7:40 PM CDT) Blood No Phlebotomy Charged / Unknown 06/21/2025 7:40 PM CDT 06/21/2025 7:58 PM CDT Hector Lomeli MD HEMATOLOGY ORDERABLES Fin al Result Performing Organization Address City/[facility]/ZIP Co de Phone Number [facility] [address] [place] [address] * Manual Differential (06/21/2025 7:40 PM CDT) BANDS % 10.0 % 06/21/2025 8:30 PM CDT [facility] NEUTROPHILS % 49.0 47.0 - 73.0 % 06/21/2025 8:30 PM CDT [facility] LYMPHOCYTES % 32.0 18.0 - 42.0 % 06/21/2025 8:30 PM CDT [facility] MONOCYTES % 8.0 4.0 - 12.0 % 06/21/2025 8:30 PM CDT [facility] EOSINOPHILS % 1.0 0.0 - 5.0 % 06/21/2025 8:30 PM CDT [facility] NEUTROPHILS ABSOLUTE 4.43 1.60 - 7.70 10(3)/[facility] 06/21/2025 8:30 PM CDT [facility] LYMPHOCYTES ABSOLUTE 2.40 1.30 - 3.20 10(3)/[facility] 06/21/2025 8:30 PM CDT [facility] MONOCYTES ABSOLUTE 0.60 0.20 - 1.00 10(3)/[facility] 06/21/2025 8:30 PM CDT [facility] EOSINOPHILS ABSOLUTE 0.08 0.00 - 0.40 10(3)/[facility] 06/21/2025 8:30 PM CDT [facility] RBC MORPHOLOGY CONSISTENT WITH INDICES Yes 06/21/2025 8:30 PM CDT [facility] WBC MORPH STATUS Normal 06/21/20 8:30 PM CDT [facility] PLATELET STATUS Normal 8:30 PM CDT [facility] Blood Venipuncture / Unknown 06/21/2025 7:40 PM CDT 06/21/2025 8:00 PM CDT us Hector Lomeli MD HEMATOLOGY ORDERABLES Fin al Result [facility] [address] [place] [address] * CBC with Auto Differential (06/21/2025 7:40 PM CDT) Only the most recent of2 resultswithin the time period is included. WBC 7.50 4.00 - 12.00 10(3)/[facility] 06/21/2025 8:27 PM CDT [facility] RBC 4.58 3.80 - 5.30 10(6)/mcL 06/21/2025 8:27 PM CDT [facility] HEMOGLOBIN (HGB) 13.9 12.0 - 15.8 g/dL 06/21/2025 8:27 PM CDT [facility] HEMATOCRIT (HCT) 43.0 36.0 - 47.0 % 06/21/2025 8:27 PM CDT [facility] MCV 93.9 82.0 - 96.0 fL 06/21/2025 8:27 PM CDT [facility] MCH 30.3 26.0 - 34.0 pg 06/21/2025 8:27 PM CDT [facility] MCHC 32.3 31.0 - 36.0 g/dL 06/21/2025 8:27 PM CDT [facility] PLATELET COUNT 218 140 - 440 10(3)/mcL 06/21/2025 8:27 PM CDT [facility] RDW 13.3 11.8 - 15.5 % 06/21/2025 8:27 PM CDT [facility] MPV 10.3 9.7 - 12.4 fL 06/21/2025 8:27 PM CDT [facility] NRBC PER 100 WBC 0 06/21/2025 8:27 PM CDT [facility] RESULTS ARE CONSISTENT WITH PERIPHERAL SMEAR REVIEW Yes 06/21/2025 8:27 PM CDT [facility] RBC MORPHOLOGY CONSISTENT WITH INDICES Yes 06/21/2025 8:27 PM CDT [facility] Blood Venipuncture / Unknown 06/21/2025 7:40 PM CDT 06/21/2025 8:00 PM CDT us Hector Lomeli MD HEMATOLOGY ORDERABLES Fin al Result [facility] [address] [place] [address] * Lipase (06/21/2025 7:40 PM CDT) Only the most recent of2 resultswithin the time period is included. LIPASE 29 8 - 78 U/L 06/21/2025 8:21 PM CDT [facility] Blood Venipuncture / Unknown 06/21/2025 7:40 PM CDT 06/21/2025 8:00 PM CDT us Hector Lomeli MD CHEMISTRY ORDERABLES Delisa l Result [facility] [address] [place] [address] * (ABNORMAL) CMP (Comprehensive Metabolic Panel) (06/21/2025 7:40 PM CDT) Only the most recent of2 resultswithin the time period is included. SODIUM 144 136 - 145 mmol/L 06/21/2025 8:21 PM CDT [facility] POTASSIUM 3.3(L) 3.5 - 5.1 mmol/L 06/21/2025 8:21 PM CDT [facility] CHLORIDE 107 98 - 107 mmol/L 06/21/2025 8:21 PM CDT [facility] CO2, VENOUS 25 22 - 30 mmol/L 06/21/2025 8:21 PM CDT [facility] ANION GAP 15.3 <18.0 mmol/L 06/21/2025 8:21 PM CDT [facility] GLUCOSE 100(H) 70 - 99 mg/dL 06/21/2025 8:21 PM CDT [facility] BUN 9(L) 10 - 20 mg/dL 06/21/2025 8:21 PM CDT [facility] CREATININE, BLOOD 0.81 0.60 - 1.00 mg/dL 06/21/2025 8:21 PM CDT [facility] BUN/CREATININE RATIO 11(L) 12 - 20 ratio 06/21/2025 8:21 PM CDT [facility] TOTAL PROTEIN 7.2 6.0 - 8.0 g/dL 06/21/2025 8:21 PM CDT [facility] ALBUMIN 4.1 3.5 - 5.0 g/dL 06/21/2025 8:21 PM CDT [facility] A/G RATIO 1.3 1.0 - 2.2 06/21/2025 8:21 PM CDT [facility] CALCIUM 9.0 8.7 - 10.5 mg/dL 06/21/2025 8:21 PM CDT [facility] T BILI 0.9 0.2 - 1.2 mg/dL 06/21/2025 8:21 PM CDT [facility] SGOT (AST) 26 <43 U/L 06/21/2025 8:21 PM CDT [facility] SGPT (ALT) 21 <56 U/L 06/21/2025 8:21 PM CDT [facility] ALKALINE PHOSPHATASE 78 40 - 150 U/L 06/21/2025 8:21 PM CDT [facility] GFR, ESTIMATED >60 >=60 06/21/2025 8:21 PM CDT [facility] Comment: Creatinine Clearance is the preferred criteria for selecting drug dose adjustments in renally impaired patients. The GFR is provided as additional pertinent clinical information. GFR is reported in mL/min/1.73 sq m. Calculation based on the Chronic Kidney Disease Epidemiology Collaboration (CKD- EPI) equation refit without adjustment for race. GFR, EST. >60 >=60 025 8:21 PM CDT [facility] GFR, EST. NONAFRICAN >60 >=60 06/21/2025 8:21 PM CDT [facility] Blood Venipuncture / Unknown 06/21/2025 7:40 PM CDT 06/21/2025 8:00 PM CDT us Hector Lomeli MD CHEMISTRY ORDERABLES Delisa l Result Performing Organization Address City/[facility]/ZIP Co de Phone Number [facility] [address] [place] [address] * (ABNORMAL) Urinalysis w/ Reflex (06/20/2025 11:14 AM CDT) SPECIFIC GRAVITY 1.015 1.003 - 1.030 06/20/2025 11:48 AM CDT [facility] URINE PH 6.0 5.0 - 9.0 06/20/2025 11:48 AM CDT [facility] WBC ESTERASE Negative Negative 06/20/2025 11:48 AM CDT [facility] NITRITE Negative Negative 06/20/2025 11:48 AM CDT [facility] PROTEIN, RANDOM URINE 15 mg/dL(A) Negative 06/20/2025 11:48 AM CDT [facility] URINE GLUCOSE, QUAL Negative Negative 06/20/2025 11:48 AM CDT [facility] URINE KETONES Negative Negative 06/20/2025 11:48 AM CDT [facility] UROBILINOGEN Normal Normal mg/dL 06/20/2025 11:48 AM CDT [facility] URINE BLOOD Negative Negative corby/ul 06/20/2025 11:48 AM CDT [facility] URINALYSIS COLOR Yellow 06/20/20 11:48 AM CDT [facility] URINALYSIS CLARITY Clear 06/20/2025 11:48 AM CDT [facility] Urine URINE SPECIMEN / Unknown Non-Phlebotomy Collection / Unknown 06/20/2025 11:14 AM CDT 06/20/2025 11:32 AM CDT us Neal Galindo PAC URINE ORDERABLES Fin al Result Performing Organization Address City/[facility]/ZIP Co de Phone Number [facility] [address] [place] [address] from Last 3 Months Insurance MEDICARE C [employer] Care Teams In [place] [employer] Relationship Specialty Start Date End Date Los Mccloud MD [address] [place] [address] PCP - General Internal Medicine 06/20/25
[2025-08-19 09:07] LABS: EDUAAPPEAR Cloudy; EDUABILI Negative (Negative); EDUABLOOD 2+ (Negative); EDUACOLOR1 Light/Pale; EDUAGLUCOSE Negative (Negative); EDUAKETONE Negative (Negative); EDUALEUKO 2+ (Negative); EDUANITRATE Negative (Negative); EDUAPH 6.0; EDUAPROTEIN Negative (Negative); EDUASPGRAVITY 1.010; EDUAUROBILI 0.2
== END 2025-08-19 09:10 | disposition home or self-care (01) ==
PROVIDERS: Emergency Provider Registered Nurse
DX: N39.0 Urinary tract infection, site not specified (principal); E03.9 Hypothyroidism, unspecified; Z79.899 Other long term (current) drug therapy
CPT/HCPCS: 81003; 87086; 99213; G0463